=== PATIENT | female | born 1945 | race Caucasian/White ===

== ENCOUNTER 2018-02-21 09:50 | Outpatient (CLI) | payer MEDICARE, OTHER ==
[2018-02-21 10:49] LABS: ALBUMIN 3.8 g/dL (3.2-5.5); CALCIUM 9.2 mg/dL (8.5-10.3); PHOSPHORUS 3.8 mg/dL (2.5-4.6)
== END 2018-02-21 09:51 | disposition home or self-care (01) ==
LOC: LAB 09:50
PROVIDERS: ATTEND Internal Medicine Cardiovascular Disease
DX: I49.3 Ventricular premature depolarization (principal); R53.83 Other fatigue
CPT/HCPCS: 36415; 80069

== ENCOUNTER 2018-03-28 13:42 | Outpatient (CLI) | payer MEDICARE, OTHER ==
--- NOTE | 2018-04-07 12:40 | Mammography Report ---
Reason: BILAT SCREEN w SUDHA Procedure Date: 03/28/2018 Accession Number: [id number] / [id number] Procedure: ALLI - Screening Mammo w/Sudha CPT Code: FULL RESULT: EXAM: Screening Mammo w/Sudha DATE: 03/28/2018 2:34 PM CLINICAL HISTORY: Routine screening TECHNIQUE: Bilateral CC and MLO views were obtained. COMPARISON: Not available. FINDINGS: The breast tissue is heterogeneously dense. No suspicious masses, clustered microcalcifications, skin thickening, or regions of architectural distortion are identified. IMPRESSION: Negative examination. RECOMMENDATION: Routine annual screening unless otherwise clinically indicated. BIRADS CATEGORY 1: Negative Comment: If prior examinations become available for comparison, an addended report will be issued. STANDARD QUALIFYING STATEMENTS: 1. This examination was not reviewed with the aid of Computer-Aided Detection (CAD). 2. A negative or benign imaging report should not delay biopsy if clinically suspicious findings are present. Consider surgical consultation if warrented. More than 5% of cancers are not identified by imaging. 3. Dense breasts may obscure an underlying neoplasm. 4. This examination was reviewed with the aid of 3D breast imaging (tomosynthesis).
== END 2018-03-28 13:43 | disposition home or self-care (01) ==
LOC: DI 13:42
PROVIDERS: ATTEND Family Medicine
DX: Z12.31 Encounter for screening mammogram for malignant neoplasm of breast (principal)
CPT/HCPCS: 77063; 77067

== ENCOUNTER 2018-03-28 13:43 | Outpatient (CLI) | payer MEDICARE, OTHER ==
--- NOTE | 2018-03-30 11:23 | DEXA Report ---
Reason: SCREENING FOR OSTEOPOROSIS Procedure Date: 03/28/2018 Accession Number: [id number] / [id number] Procedure: DEX - Dexa Spine and/or Hip CPT Code: FULL RESULT: EXAM: Dexa Spine and/or Hip DATE: 03/28/2018 2:55 PM CLINICAL HISTORY: SCREENING FOR OSTEOPOROSIS TECHNIQUE: Dual energy x-ray absorptiometry (DXA) was performed on a [employer] System. Regions measured are the AP Spine, femoral neck, and if needed forearm. COMPARISON: None. In accordance with the International Society for Clinical Densitometry (ISCD) guidelines, data from previous exams may be reanalyzed using current recommendations and techniques. This is done to allow a more accurate basis for comparison with the current study. FINDINGS: The data for the lumbar spine is as follows: BMD (g/cm/cm) T-SCORE Z-SCORE REGION L1 1.059 -0.6 0.8 L2 1.171 -0.2 1.2 L3 1.291 0.8 2.2 L4 1.198 0.0 1.4 TOTAL 1.186 0.1 1.5 NOTE: All evaluable vertebrae are used for classification The data for the hip is as follows: BMD (g/cm/cm) T-SCORE Z-SCORE REGION Neck 0.987 -0.4 1.2 TOTAL 0.834 -1.4 -0.1 NOTE: The femoral neck or total proximal femur, whichever is lowest, is used for classification. IMPRESSION: THE WHO CLASSIFICATION BASED ON THE INTERNATIONAL REFERENCE STANDARD IS OSTEOPENIA. THE FRACTURE RISK IS INCREASED. RECOMMENDATION: Patients with diagnosis of osteoporosis or osteopenia should have regular bone mineral density assessment. For those eligible for Medicare, routine testing is allowed once every 2 years. Testing frequency can be increased for patients who have rapidly progressing disease or for those who are receiving medical therapy to restore bone mass. COMMENT: World Health Organization (WHO) definitions for osteoporosis and osteopenia: NORMAL BMD: T-score at -1.0 or higher, fracture risk is low OSTEOPENIA BMD: T-score between -1.0 and -2.5, fracture risk is increased. OSTEOPOROSIS BMD: T-score at -2.5 or lower, fracture risk is high. National Osteoporosis Foundation recommends: 1. Obtain adequate dietary calcium (at least 1200 mg per day) and vitamin D (400-800 international units per day). 2. Participate, as appropriate, in regular weightbearing and muscle-strengthening exercise. 3. Avoid tobacco use and reduce alcohol and caffeine intake. 4. For more detailed information see the website at www.NOF.org.
== END 2018-03-28 13:44 | disposition home or self-care (01) ==
LOC: DI 13:43
PROVIDERS: ATTEND Family Medicine
DX: Z13.820 Encounter for screening for osteoporosis (principal); M85.88 Other specified disorders of bone density and structure, other site; Z78.0 Asymptomatic menopausal state
CPT/HCPCS: 77080

== ENCOUNTER 2019-06-27 10:52 | Outpatient (CLI) | payer MEDICARE, OTHER ==
--- NOTE | 2019-06-28 15:54 | Mammography Report ---
Reason: ROUTINE MAMMO Procedure Date: 06/27/2019 Accession Number: [id number] / [id number] Procedure: ALLI - Screening Mammo w/Suraj CPT Code: Final Report FULL RESULT: EXAM: Screening Mammo w/Suraj DATE: 06/27/2019 11:20 AM CLINICAL HISTORY: The patient is a 74 year-old asymptomatic female. Second degree family history of breast cancer. TECHNIQUE: (B) - Bilateral CC and MLO views were obtained. COMPARISON: 03/28/2018 PARENCHYMAL PATTERN: (D) - The breasts demonstrate heterogeneously dense fibroglandular parenchyma bilaterally. FINDINGS: RIGHT BREAST: There may be increasing asymmetry in the upper outer posterior position; reference tomographic slices 31 (CC) and 20 (MLO). This may be due to variation in positioning. Recommend targeted diagnostic evaluation. The remainder of the parenchymal pattern is stable. LEFT BREAST: The pattern of nodular asymmetry is stable. Few benign calcifications are again noted. There are no suspicious masses, calcifications, or areas of distortion. IMPRESSION: RIGHT BREAST: Incomplete examination. BI-RADS category 0. LEFT BREAST: Benign examination. BI-RADS category 2. RECOMMENDATION: Targeted diagnostic evaluation of the left breast to include 3-D mammography and ultrasound, if indicated. BI-RADS CATEGORY: (0) - Incomplete Examination - need additional evaluation. STANDARD QUALIFYING STATEMENTS: A negative or benign imaging report should not preclude biopsy if clinically suspicious findings are present. Dense breasts may obscure an underlying neoplasm. This examination was reviewed with the aid of 3D breast imaging (tomosynthesis).
== END 2019-06-27 10:53 | disposition home or self-care (01) ==
LOC: DI 10:52
PROVIDERS: ATTEND Family Medicine
DX: Z12.31 Encounter for screening mammogram for malignant neoplasm of breast (principal); R92.8 Other abnormal and inconclusive findings on diagnostic imaging of breast; Z80.3 Family history of malignant neoplasm of breast
CPT/HCPCS: 77063; 77067

== ENCOUNTER 2019-08-07 08:57 | Outpatient (CLI) | payer MEDICARE, OTHER ==
--- NOTE | 2019-08-07 10:26 | Mammography Report ---
Reason: ABN MAMMO-RT SPECIAL VIEWS Procedure Date: 08/07/2019 Accession Number: [id number] / [id number] Procedure: ALLI - Diag Special Views Dig RT CPT Code: Final Report FULL RESULT: EXAM: Diag Special Views Dig RT DATE: 08/07/2019 9:50 AM CLINICAL HISTORY: Diagnostic examination. Patient is recalled from screening for increasing asymmetry in the right breast. TECHNIQUE: (R) - Right CC, spot CC, ML and spot MLO images are obtained. Focused right breast ultrasound is performed. COMPARISON: 06/27/2019 through 03/28/2018. PARENCHYMAL PATTERN: (D) - The breast(s) demonstrate(s) heterogeneously dense fibroglandular parenchyma. FINDINGS: The increasing right axillary tail asymmetry approximately 11 cm from the nipple at the 11:00 position persists with clear architectural distortion as seen on CC image 28 and MLO image 23. Focused right breast ultrasound of the axillary tail 10 cm from the nipple demonstrates a taller than wide 0.6 cm shadowing mass lesion with ill-defined borders, suspicious. IMPRESSION: Highly suggestive for malignancy. BI-RADS category 5. RECOMMENDATION: (BIOPSY) - ultrasound-guided right breast biopsy. BI-RADS CATEGORY: (5) - Highly suggestive for malignancy. STANDARD QUALIFYING STATEMENTS: 1. This examination was not reviewed with the aid of Computer-Aided Detection (CAD). 2. A negative or benign imaging report should not preclude biopsy if clinically suspicious findings are present. 3. Dense breasts may obscure an underlying neoplasm. 4. This examination was reviewed with the aid of 3D breast imaging (tomosynthesis).
== END 2019-08-07 08:58 | disposition home or self-care (01) ==
LOC: DI 08:57
PROVIDERS: ATTEND Family Medicine
DX: N63.31 Unspecified lump in axillary tail of the right breast (principal)
CPT/HCPCS: 76642

== ENCOUNTER 2019-08-20 14:55 | Outpatient (CLI) | payer MEDICARE, OTHER ==
[~2019-08-20 14:55] MED LIST: BUFFERED LIDOCAINE 10 ML SYRINGE ONE
[2019-08-20] MEDS ORDERED: BUFFERED LIDOCAINE 10 ML SYRINGE IU ONE (16:38)
--- NOTE | 2019-08-20 16:40 | Ultrasound Report ---
Reason: ABNORMAL MAMMO - RT BREAST NODULE Procedure Date: 08/20/2019 Accession Number: [id number] / [id number] Procedure: US - Biopsy Breast Core CPT Code: Final Report FULL RESULT: PROCEDURE: Ultrasound-guided needle biopsy left breast mass. CLINICAL DATA: Targeted mass measuring 0.7 cm with irregular margins in the 10 o'clock axis of the left breast. Informed consent was obtained. Using standard aseptic technique, 1% buffered lidocaine was injected into the left breast for local anesthesia. A small navid was made in the skin with a #11 blade. A 12-gauge Wevebob vacuum-assisted device was used to obtain 3 specimens. A specialized biopsy marker clip was placed into the biopsy cavity under ultrasound guidance. The patient was taken to separate mammography machine and a two-view digital mammography was performed to verify the clip placement and any complications. The mammography showed concordant clip position and expected postbiopsy changes. The wound was dressed and ice applied. The patient was observed for approximately 15 minutes, then was discharged from diagnostic imaging Department in good condition following instructions on wound care and obtaining biopsy results. The patient is scheduled to receive the biopsy results from the referring physician. The tissue was sent for histologic analysis. IMPRESSION: Ultrasound-guided biopsy of the left breast. AN ADDENDUM WILL BE MADE TO THIS REPORT WHEN PATHOLOGY IS REVIEWED TO ESTABLISH CONCORDANCE.
== END 2019-08-20 14:56 | disposition home or self-care (01) ==
LOC: DI 14:55
PROVIDERS: ATTEND Family Medicine
DX: C50.211 Malignant neoplasm of upper-inner quadrant of right female breast (principal); Z17.0 Estrogen receptor positive status [ER+]
CPT/HCPCS: 19083; 88305; 88341; 88342; 88360

== ENCOUNTER 2019-09-20 16:08 | Outpatient (CLI) | payer MEDICARE, OTHER ==
[2019-09-20 16:24] LABS: CALCIUM 8.7 mg/dL (8.5-10.3); CREATININE 0.8 mg/dL (0.4-1.0)
== END 2019-09-20 16:09 | disposition home or self-care (01) ==
LOC: LAB 16:08
PROVIDERS: ATTEND Surgery
DX: C50.919 Malignant neoplasm of unspecified site of unspecified female breast (principal)
CPT/HCPCS: 36415; 80048

== ENCOUNTER 2019-09-25 12:42 | Outpatient (CLI) | payer MEDICARE, OTHER ==
[2019-09-25] MEDS ORDERED: GADOBUTROL 7.5 MMOL/7.5 ML VIAL ONE (12:53)
[2019-09-25] MEDS ORDERED: GADOBUTROL 7.5 MMOL/7.5 ML VIAL IVP ONE (13:30)
--- NOTE | 2019-09-26 13:40 | MRI Report ---
Reason: RT INVASIVE LOBULAR CA Procedure Date: 09/25/2019 Accession Number: [id number] / [id number] Procedure: MRI - Breast W/WO Cont CPT Code: 51631 Final Report FULL RESULT: EXAM: BILATERAL BREAST MRI WITHOUT AND WITH CONTRAST EXAM DATE: 09/25/2019 02:09 PM CLINICAL HISTORY: 74-year-old woman with recently diagnosed right breast invasive lobular carcinoma following ultrasound-guided core biopsy for indeterminate mass at the 10 o'clock position. MRI is requested to evaluate for extent of disease. TECHNIQUE: Body Coil: (Limited chest MRI)- Coronal LFOV STIR Dedicated breast coil: Axial - precontrast STIR Axial - postcontrast sequential 1 minute three-dimensional FLASH (x 5) Axial - high-resolution volumetric water stimulation acquisition (VIEWS) CONTRAST USED: 7ML GADAVIST. POSTPROCESSING: Subtraction dynamic/curve analysis and multiplanar reformations with CAD stream FINDINGS: Right breast: There is minimal background parenchymal enhancement. Heterogeneously dense parenchyma is noted. At the 10 o'clock position at posterior depth, biopsy-proven malignancy is seen as a spiculated mass demonstrating rim enhancement measuring up to 1.8 cm in greatest dimension. Biopsy clip is noted at the lateral/inferior aspect of the mass. In the remaining right breast, no focal suspicious enhancing other malady is seen. Evaluation of the axilla reveals normal-appearing lymph nodes. Left breast: There is minimal background parenchymal enhancement. Heterogeneously dense ring, is noted. No focal suspicious enhancing other malady is seen. Evaluation of the axilla reveals normal-appearing lymph nodes. IMPRESSION: 1. Right breast: Biopsy-proven malignancy at the 10 o'clock position seen as a spiculated mass with biopsy clip at the lateral/inferior aspect measuring up to 1.8 cm in greatest dimension. No evidence of multifocal or multicentric disease. Unremarkable right axilla. (BI-RADS Category 6). 2. Left breast: No focal suspicious enhancing other malady seen. Unremarkable left axilla. (BI-RADS Category 1). COMMENT: The literature indicates that a negative dynamic breast MRI has a high sensitivity and specificity for the detection of invasive carcinoma (to a threshold of 5 mm). MRI is not reliably sensitive for detecting ductal carcinoma in situ or large invasive neoplasms with only minimal enhancement (i.e. mucinous carcinoma). Normal-appearing lymph nodes on MRI may contain microscopic tumor. Appropriate clinical mammographic and sonographic followup should be performed if recommended. Negative MRI should not dissuade further evaluation of any suspicious mammographic calcifications and/or worrisome palpable masses.
== END 2019-09-25 12:43 | disposition home or self-care (01) ==
LOC: DI 12:42
PROVIDERS: ATTEND Surgery
DX: C50.411 Malignant neoplasm of upper-outer quadrant of right female breast (principal)
CPT/HCPCS: 77049; A9585

== ENCOUNTER 2019-12-14 14:29 | Outpatient (CLI) | payer MEDICARE, OTHER | END 2019-12-14 14:30 | disposition home or self-care (01) | LOC: LAB 14:29 | PROVIDERS: ATTEND Surgery | DX: Z01.812 Encounter for preprocedural laboratory examination (principal); C50.919 Malignant neoplasm of unspecified site of unspecified female breast; Z20.828 Contact with and (suspected) exposure to other viral communicable diseases | CPT/HCPCS: 81599 ==

== ENCOUNTER 2019-12-17 10:03 | Day surgery (SDC) | payer MEDICARE, OTHER ==
[2019-12-17] MEDS ORDERED: LACTATED RINGERS 1,000 ML IV ONE (10:28)
[2019-12-17] MEDS ORDERED: CEFAZOLIN SODIUM IN 0.9 % NACL 2 GM/100 ML BAG IV ONE (10:47)
--- NOTE | 2019-12-17 12:46 | ANESTHESIA ---
Pre-Anesthesia VS, & Labs - Diagnosis right breast cancer - Procedure breast lumpectomy with axillary sentinal dose removal. Vital Signs: Temp Pulse Resp BP Pulse Ox 36.7 C 59 L 16 179/99 H 100 12/17/19 10:13 12/17/19 10:13 12/17/19 10:13 12/17/19 10:13 12/17/19 10:13 Height 5 ft 8 in Weight (kg) 71 kg Body Mass Index 23.4 - NPO >8 hours - Is Patient ?: No Home Medications and Allergies Home Medications: Ambulatory Orders Anastrozole 1 mg PO DAILY 12/11/19 Fluticasone [Flonase] 1 sprays AMRITA DAILY PRN 12/11/19 predniSONE [Prednisone] 10 mg PO ONCE 12/11/19 Calcium Citrate 500 mg PO DAILY 10/05/19 Gabapentin 200 mg PO DAILY 10/05/19 Losartan [Cozaar] 50 mg PO DAILY 10/05/19 Metoprolol Succinate 50 mg PO DAILY 10/05/19 Omeprazole 20 mg PO DAILY PRN 10/05/19 Anastrozole 1 mg PO DAILY 12/11/19 Fluticasone [Flonase] 1 sprays AMRITA DAILY PRN 12/11/19 predniSONE [Prednisone] 10 mg PO ONCE 12/11/19 Allergies/Adverse Reactions: Allergies Allergy/AdvReac Type Severity Reaction Status Date / Time No Known Drug Allergies Allergy Verified 12/11/19 08:33 Anes History & Medical History - Anesthetic History Anesthesia Complications: reports: No previous complications, Post-Operative Nausea/Vomiting Family history of Anesthesia Complications: Denies Family history of Malignant Hyperthermia: Denies - Medical History Cardiovascular: reports: Hypertension Pulmonary: reports: Other (sarcoidosis) Gastrointestinal: reports: GERD (undercontrol) Urinary: reports: None Neuro: reports: None, Other (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 muscle spasticity and foot drop in the left leg since after that craniotomy) Musculoskeletal: reports: Osteoarthritis Endocrine/Autoimmune: reports: None Blood Disorders: reports: None Skin: reports: None Smoking Status: Former smoker Psychosocial: reports: Alcohol (a drink aday) - Surgical History General: Appendectomy Eyes Ears Nose Throat (EENT): Cataracts Gynecologic: Tubal ligation Neurologic: Craniotomy Orthopedic: Knee replacement, Spine surgery Exam General: Alert, Oriented x3, Cooperative, No acute distress Dental: WNL Mouth Openin Fingerbreadth Neck Mobility: Normal Mallampati classification: II Thyromental Distance: 4-6 cm Respiratory: Lungs clear, Normal breath sounds, No respiratory distress, No accessory muscle use Cardiovascular: Regular rate, Normal S1, Normal S2, No murmurs Abdomen: Normal bowel sounds, Soft, No tenderness, No hepatospenomegaly, No masses Extremities: No clubbing, No cyanosis, No edema, Normal pulses, No tenderness/swelling Neurological: Normal gait, Normal speech, Strength at 5/5 X4 ext, Normal tone, Sensation intact, Cranial nerves 3-12 NL, Reflexes 2+ Mental/Cognitive Status: Alert/Oriented X3, Normal for patient Cognitive Status: Within normal limits Plan Anesthesia Type: General, Other Block (pecs 1 and 2 blocks.) Regional Block: Per Surgeon's request for Post Op pain control Consent for Procedure(s) Verified and Reviewed: Yes Code Status: Attempt Resuscitation ASA classification: 3-Severe systemic disease Is this case an emergency?: No
[2019-12-17] MEDS ORDERED: ROPIVACAINE 0.5% PF 20 ML AMPULE ONE (12:47)
[2019-12-17] MEDS ORDERED: LIDOCAINE 1%-EPI 1:100000 20 ML MDV ONE (13:10)
[2019-12-17] MEDS ORDERED: BUPIVACAINE 0.5% PF 30 ML VIAL ONE (13:10)
[2019-12-17] MEDS ORDERED: KETOROLAC 15 MG/ML VIAL IVP ONE (13:26)
[2019-12-17] MEDS ORDERED: GLYCOPYRROLATE 1 MG/5 ML VIAL IVP ONE (13:26)
[2019-12-17] MEDS ORDERED: ACETAMINOPHEN 1,000 MG/100 ML 100 ML IV ONE (13:26)
[2019-12-17] MEDS ORDERED: dexAMETHasone 4 MG TABLET PO ONE (13:26)
[2019-12-17] MEDS ORDERED: ePHEDrine 50 MG/ML VIAL IVP ONE (13:26)
[2019-12-17] MEDS ORDERED: LIDOCAINE-MPF 2% 5 ML VIAL IM ONE (13:26)
[2019-12-17] MEDS ORDERED: PROPOFOL 200 MG/20 ML VIAL IVP ONE (13:26)
[2019-12-17] MEDS ORDERED: ONDANSETRON 4 MG/2 ML VIAL IVP ONE (13:26)
[2019-12-17] MEDS ORDERED: fentaNYL 100 MCG/2 ML VIAL IVP ONE (13:26)
[2019-12-17] MEDS ORDERED: LIDOCAINE 1%-EPI 1:100000 20 ML MDV SUBQ ONE ×2 (13:40)
[2019-12-17] MEDS ORDERED: BUPIVACAINE 0.5% PF 30 ML VIAL SUBQ ONE ×2 (13:41)
--- NOTE | 2019-12-17 14:36 | OPERATIVE REPORT ---
Operative Report - General Procedure Date: 12/17/19 Planned Procedure: Right breast lumpectomy and sentinel node dissection after needle localization and mapping Pre-Op Diagnosis: Biopsy-proven right breast cancer Procedure Performed: Right breast lumpectomy and sentinel node dissection after needle localization and mapping Post Op Diagnosis: Biopsy-proven right breast cancer - Procedure Note Primary Surgeon: Angel Anesthesia Provider: SARAH Che Anesthesia Technique: General LMA, Local Pathology: 1. [place] node #1 - 10 second count 4140 2. [place] node #2 - 10 second count 3503 3. [place] node #3 - 10 second count 1300 Background in the axilla 14 Background in room 0 4. Left breast specimen Estimated Blood Loss (mL): 15 Findings: 3 sentinel node Complications: None apparent - Other Other Information/Narrative: After obtaining informed consent, the patient is brought to the operating room and placed in the supine position on the operating table. Following successful induction of general endotracheal anesthesia, Appropriate padding of all bony prominences, and placement appropriate monitors, the right breast and axilla were prepped and draped in standard surgical fashion.Timeout was held per scope protocol. All elements of the surgical safety checklist were observed before, during, and after the procedure. We began the procedure by using the neoprobe to map and identify the areas of greatest uptake, thereby locating the sentinel nodes. A natural axillary fold was chosen for the incision. This area was infiltrated with local anesthetic and incision was created here. This was carried down through the skin and subcutaneous tissue to enter the axillary fat pad and swapna packet. 3 separate sentinel nodes were identified, the first was at the level 2 region and the second 2 were at the level 2 and 3 junction. Each was identified separately, the afferent and efferent lymphatics were ligated with hemoclips and the nodes were liberated 1 at a time. 10-second counts were obtained and recorded. The wound was then checked for hemostasis and irrigated with warm water. It was closed in 2 layers with Vicryl and Monocryl suture. An incision was created in the lateral portion of the right breast to include the wire. This was carried down through the skin and subcutaneous tissue. The wire and mass were then liberated from the muscle posteriorly and circumferentially using sharp dissection only. The mass and wire were delivered into the field and marked for orientation. It was placed in a x-ray safe device and sent for specimen imagi ng. The wound was then checked for hemostasis. It was irrigated with warm water while we waited for information regarding the specimen x-ray. The radiologist called into the room reporting that the specimen contained all the important elements. The wound was then closed in 2 layers with Vicryl and Monocryl suture. Dermabond was applied to the skin. The patient was wrapped in a breast binder. All sponge, needle, and instrument counts were correct at the conclusion of the case.She was allowed awaken from anesthesia without difficulty and taken to the postanesthesia care unit in good condition.
--- NOTE | 2019-12-17 14:37 | Nuclear Medicine Report ---
PROCEDURE: Lymph Node Scintigraphy INDICATIONS: RT BREAST CA RADIOPHARMACEUTICAL: 0.5-1.0 mCi Millipore filtered Tc-99m sulfur colloid. TECHNIQUE: The area around the nipple was prepped and draped in a sterile fashion. Tc-99m sulfur colloid was in jected intra-dermally in the outer edge of the areola in the right breast. Images were obtained subs equently. A body contour outline was obtained. FINDINGS: There is/are 2 lymph node(s) in the ipsilateral axilla, which is marked on the skin and the images fo r referring physician. IMPRESSION: Administration of radiotracer into the right breast periareolar region for intra-operati ve sentinel lymph node localization. Reviewed by: Micky Boss MD on 12/17/2019 2:36 PM PDT Approved by: Micky Boss MD on 12/17/2019 2:36 PM PDT Station ID: [id number]
[2019-12-17] MEDS ORDERED: ACETAMINOPHEN 325 MG TABLET PO PRN (14:52)
[2019-12-17] MEDS ORDERED: IBUPROFEN 600 MG TABLET PO PRN (14:52)
[2019-12-17] MEDS ORDERED: oxyCODONE 5 MG TABLET PO PRN (14:52)
[2019-12-17] MEDS ORDERED: ONDANSETRON 4 MG/2 ML VIAL IVP PRN (14:52)
[2019-12-17 16:08] VITALS: BP 145/77
[2019-12-17] MEDS ORDERED: BUFFERED LIDOCAINE 10 ML SYRINGE IU ONE (17:24)
--- NOTE | 2019-12-20 11:00 | Mammography Report ---
SPECIMEN RIGHT BREAST: 12/17/2019 CLINICAL: Post right lumpectomy. No prior exams were available for correlation. A surgical specimen was imaged for the previous biopsy site located in the right breast at 9 o'clock posterior depth. IMPRESSION: SPECIMEN The imaged specimen includes a biopsy clip and the distal portion of the localization wire. Micky barros/:12/19/2019 16:02:10 BI-RADS CATEGORY: () - Biopsy follow-up [id number] Immediate follow-up LATERALITY: (B)
--- NOTE | 2019-12-20 11:00 | Mammography Report ---
DIGITAL MAMMOGRAPHY GUIDED WIRE LOCALIZATION RIGHT BREAST: 12/17/2019 CLINICAL: Pre op wire localization Right breast. Correlation is made to exams dated: 08/07/2019 mammogram, 08/20/2019 mammogram, and 06/27/2019 mammogram - [facility]. A wire localization using digital mammography guidance was performed for the marker clip located in t he right breast at 9 o'clock posterior depth. The skin was prepped in the usual manner. Local anest hetic was administered to the access site. A wire was inserted into the targeted area under digital mammography guidance. IMPRESSION: WIRE LOCALIZATION Wire localization for the marker clip in the right breast at 9 o'clock posterior depth was successful . A specimen radiograph is recommended. Micky barros/:12/17/2019 16:26:43 BI-RADS CATEGORY: () - Biopsy follow-up [id number] Immediate follow-up LATERALITY: (B)
== END 2019-12-17 10:04 | disposition home or self-care (01) ==
LOC: SDS 10:03
PROVIDERS: ATTEND Surgery
PROC: 0HBT0ZZ Excision of Right Breast, Open Approach (ICD-10-PCS; principal; 2019-12-17 13:30)
DX: C50.411 Malignant neoplasm of upper-outer quadrant of right female breast (principal); Z17.0 Estrogen receptor positive status [ER+]; I10 Essential (primary) hypertension; Z87.891 Personal history of nicotine dependence
CPT/HCPCS: 19281; 19301; 38525; 76098; 78195; A9541; J0131; J0690; J7120; J8540

== ENCOUNTER 2019-12-28 14:12 | Outpatient (CLI) | payer MEDICARE, OTHER | END 2019-12-28 14:13 | disposition home or self-care (01) | LOC: LAB 14:12 | PROVIDERS: ATTEND Surgery | DX: Z01.818 Encounter for other preprocedural examination (principal); C50.919 Malignant neoplasm of unspecified site of unspecified female breast; Z20.828 Contact with and (suspected) exposure to other viral communicable diseases ==

== ENCOUNTER 2019-12-31 09:04 | Day surgery (SDC) | payer MEDICARE, OTHER ==
[2019-12-31] MEDS ORDERED: fentaNYL 100 MCG/2 ML VIAL IVP ONE (09:05)
[2019-12-31] MEDS ORDERED: LIDOCAINE-MPF 2% 5 ML VIAL IM ONE (09:05)
[2019-12-31] MEDS ORDERED: MIDAZOLAM 2 MG/2 ML VIAL IVP ONE (09:05)
[2019-12-31] MEDS ORDERED: PROPOFOL 200 MG/20 ML VIAL IVP ONE (09:05)
[2019-12-31] MEDS ORDERED: CEFAZOLIN SODIUM IN 0.9 % NACL 2 GM/100 ML BAG IV ONE (09:11)
[2019-12-31] MEDS ORDERED: BUPIVACAINE 0.5% PF 30 ML VIAL ONE (09:33)
[2019-12-31] MEDS ORDERED: LIDOCAINE 1%-EPI 1:100000 20 ML MDV ONE (09:33)
[2019-12-31] MEDS ORDERED: LACTATED RINGERS 1,000 ML IV ONE (09:41)
--- NOTE | 2019-12-31 09:51 | ANESTHESIA ---
Pre-Anesthesia VS, & Labs - Diagnosis R breast CA - Procedure R breast re-excision of margins Vital Signs: Temp Pulse Resp BP Pulse Ox 37.1 C 65 18 180/97 H 98 12/31/19 09:05 12/31/19 09:05 12/31/19 09:05 12/31/19 09:05 12/31/19 09:05 Height 5 ft 8 in Weight (kg) 71.1 kg Body Mass Index 23.4 - NPO >8 hours - Is Patient ?: No - Lab Results Lab results reviewed: Yes Home Medications and Allergies Calcium Citrate 500 mg PO DAILY 10/05/19 Gabapentin 200 mg PO DAILY 10/05/19 Losartan [Cozaar] 50 mg PO DAILY 10/05/19 Metoprolol Succinate 50 mg PO DAILY 10/05/19 Omeprazole 20 mg PO DAILY PRN 10/05/19 Anastrozole 1 mg PO DAILY 12/11/19 Fluticasone [Flonase] 1 sprays AMRITA DAILY PRN 12/11/19 predniSONE [Prednisone] 10 mg PO ONCE 12/11/19 Allergies/Adverse Reactions: Allergies Allergy/AdvReac Type Severity Reaction Status Date / Time No Known Drug Allergies Allergy Verified 12/11/19 08:33 Anes History & Medical History - Anesthetic History Anesthesia Complications: reports: No previous complications Family history of Anesthesia Complications: Denies Family history of Malignant Hyperthermia: Denies - Medical History Cardiovascular: reports: Hypertension Pulmonary: reports: Other Neuro: reports: None, Other (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 muscle spasticity and foot drop in the left leg since after that craniotomy) Blood Disorders: reports: None Smoking Status: Former smoker - Surgical History General: Appendectomy, Colonoscopy Eyes Ears Nose Throat (EENT): Cataracts Gynecologic: Tubal ligation Neurologic: Craniotomy Orthopedic: Knee replacement, Spine surgery Exam General: Alert, Oriented x3, Cooperative Dental: WNL Mouth Openin Fingerbreadth Neck Mobility: Normal Mallampati classification: II Thyromental Distance: greater than 6 cm Respiratory: Lungs clear, Normal breath sounds, No respiratory distress Cardiovascular: Regular rate Neurological: Normal speech Mental/Cognitive Status: Alert/Oriented X3, Normal for patient Cognitive Status: Within normal limits Plan Anesthesia Type: General Consent for Procedure(s) Verified and Reviewed: Yes Code Status: Attempt Resuscitation ASA classification: 3-Severe systemic disease Is this case an emergency?: No
[2019-12-31] MEDS ORDERED: BUPIVACAINE 0.5% PF 30 ML VIAL INFIL ONE (10:21)
[2019-12-31] MEDS ORDERED: LIDOCAINE 1%-EPI 1:100000 20 ML MDV SUBQ ONE (10:22)
[2019-12-31] MEDS ORDERED: ONDANSETRON 4 MG/2 ML VIAL IVP PRN (10:49)
[2019-12-31] MEDS ORDERED: IBUPROFEN 600 MG TABLET PO PRN (10:49)
[2019-12-31] MEDS ORDERED: oxyCODONE 5 MG TABLET PO PRN (10:49)
[2019-12-31] MEDS ORDERED: ACETAMINOPHEN 325 MG TABLET PO PRN (10:49)
--- NOTE | 2019-12-31 10:49 | OPERATIVE REPORT ---
Operative Report - General Procedure Date: 12/31/19 Planned Procedure: Excision of margins right breast Pre-Op Diagnosis: Invasive breast cancer with positive medial margin Procedure Performed: Reexcision of medial margin and evacuation of right breast hematoma Post Op Diagnosis: Same - Procedure Note Primary Surgeon: Angel Anesthesia Provider: SARAH Roman Anesthesia Technique: Local, MAC Pathology: Medial margin marked for orientation and submitted to pathology Estimated Blood Loss (mL): 50 Findings: 50 mls of old blood within the lumpectomy cavity Complications: None apparent - Other Other Information/Narrative: After obtaining informed consent, the patient was brought to the operating room and placed in the supine position on the operating table. Following successful induction of monitored anesthesia care with sedation, the right breast was prepped and draped in the standard surgical fashion. A timeout was held per scope protocol. All elements of the surgical safety checklist were followed before, during, and after the procedure. Following infiltration with local anesthetic to create a field block, the existing incision was reopened into the lumpectomy cavity. Approximately 50 mL of clotted blood was evacuated from the lumpectomy cavity and it was irrigated with warm water. A tiny bit of hydrogen peroxide, about 5 mL was added to the irrigation fluid to help lyse the red blood cells. Once the cavity was completely clean, the entire medial anterior and posterior margin was reexcised. This was done sharply to preserve the margin. The specimen was then marked for orientation and passed from the table. The wound was checked for hemostasis. It was irrigated once again with warm water and aspirated free of all fluid and particulate matter. The cavity was marked with hemoclips to facilitate radiotherapy. The skin was then closed in 2 layers with Vicryl and Monocryl suture and Dermabond was applied. All sponge, needle, and instrument counts w ere correct at the conclusion of the case. The patient was allowed to wake from anesthesia without difficulty and taken to the postanesthesia care unit in good condition.
[2019-12-31 11:35] VITALS: BP 138/76
== END 2019-12-31 09:05 | disposition home or self-care (01) ==
LOC: SDS 09:04
PROVIDERS: ATTEND Surgery
PROC: 0HBT0ZZ Excision of Right Breast, Open Approach (ICD-10-PCS; principal; 2019-12-31 10:00)
DX: D05.01 Lobular carcinoma in situ of right breast (principal); N61.0 Mastitis without abscess; L76.32 Postprocedural hematoma of skin and subcutaneous tissue following other procedure; Y83.8 Other surgical procedures as the cause of abnormal reaction of the patient, or of later complication, without mention of misadventure at the time of the procedure; Z87.891 Personal history of nicotine dependence
CPT/HCPCS: 19301; J0690; J7120

== ENCOUNTER 2020-03-20 10:48 | Outpatient (CLI) | payer MEDICARE, OTHER ==
--- NOTE | 2020-03-20 11:21 | DEXA Report ---
PROCEDURE: Dexa Spine and/or Hip INDICATIONS: POSTMENOPAUSAL TECHNIQUE: Dual energy x-ray absorptiometry (DXA) was performed on a [employer] System. Regions measur ed are the AP Spine, femoral neck, and if needed forearm. COMPARISON: None. FINDINGS: Lumbar Spine: Bone Mineral Density 1.165 g/cm/cm,T score -0.1, normal Left Hip: Bone Mineral Density 0.846 g/cm/cm,T score -1.3, osteopenia Left Femoral Neck: Bone Mineral Density 2.965 g/cm/cm, T score -0.5, normal (T score greater or equal to -1.0: NORMAL) (T score from -1.1 to -2.4: OSTEOPENIA) (T score less than or equal to -2.5 to: OSTEOPOROSIS) Impression: Osteopenia Patients with diagnosis of osteoporosis or osteopenia should have regular bone mineral density assess ment. For those eligible for Medicare, routine testing is allowed once every 2 years. Testing frequ ency can be increased for patients who have rapidly progressing disease or for those who are receivin g medical therapy to restore bone mass. Reviewed by: Crystal Stevens MD, PhD on 03/20/2020 11:20 AM PDT Approved by: Crystal Stevens MD, PhD on 03/20/2020 11:20 AM PDT Station ID: [id number]
== END 2020-03-20 10:49 | disposition home or self-care (01) ==
LOC: DI 10:48
PROVIDERS: ATTEND Internal Medicine Hematology & Oncology
DX: M85.88 Other specified disorders of bone density and structure, other site (principal)
CPT/HCPCS: 77080

== ENCOUNTER 2020-08-01 09:30 | Outpatient (CLI) | payer MEDICARE, OTHER ==
--- NOTE | 2020-08-04 12:55 | Mammography Report ---
BILATERAL DIGITAL DIAGNOSTIC MAMMOGRAM 3D/2D: 08/01/2020 CLINICAL: Post right lumpectomy. Patient returns for a 6 month follow up of the right breast, due for bilateral exam. Personal History of Right Breast Cancer. Comparison is made to exams dated: 08/20/2019 mammogram, 08/07/2019 mammogram, 06/27/2019 mammogram, 12/16 specimen, and 09/25/2019 breast MRI - [facility]. The tissue of both breasts i s heterogeneously dense. This may lower the sensitivity of mammography. There is a benign post-surgical scar in the right breast at 10 o'clock posterior depth. No other significant masses, calcifications, or other findings are seen in either breast. IMPRESSION: BENIGN There is no mammographic evidence of malignancy. Expected appearance of the right breast lumpectomy site. New baseline for the right breast. A follow-up mammogram is recommended per post-lumpectomy protocol. Exam findings were conveyed to the patient. This exam was interpreted at Station ID: [id number]. NOTE: For mammograms, a report in lay terms will be sent to the patient. Approximately 15% of breast malignancies will not be visualized mammographically. In the management of a palpable breast mass, a negative mammogram must not discourage biopsy of a clinically suspicious lesion. Electronically Signed By: Bijna Gottlieb M.D. slc/:08/01/2020 11:57:59 ACR BI-RADS Category 2: Benign Finding(s) 3342F PARENCHYMAL PATTERN: (D) - The breast(s) demonstrate(s) heterogeneously dense fibroglandular theresa crawford. BI-RADS CATEGORY: (2) - 2 Mammogram [id number] 6 month follow-up LATERALITY: (B)
== END 2020-08-01 09:31 | disposition home or self-care (01) ==
LOC: DI 09:30
PROVIDERS: ATTEND Surgery
DX: R92.2 Inconclusive mammogram (principal); C50.212 Malignant neoplasm of upper-inner quadrant of left female breast
CPT/HCPCS: 77066; G0279

== ENCOUNTER 2021-03-11 11:03 | Outpatient (CLI) | payer MEDICARE, OTHER ==
--- NOTE | 2021-03-12 08:52 | Mammography Report ---
UNILATERAL RIGHT DIGITAL DIAGNOSTIC MAMMOGRAM 3D/2D: 03/11/2021 CLINICAL: Post right lumpectomy. Comparison is made to exams dated: 08/01/2020 mammogram, 12/17/2019 specimen, 12/17/2019 localization, 09/25/2019 breast MRI, 08/20/2019 mammogram, and 08/20/2019 ultrasound - [facility]. The tissue of right breast is heterogeneously dense. This may lower the sensitivity of mammography. There is irregular equal density architectural distortion with indistinct margins in the right breast at 11 o'clock posterior depth. There are surgical clips, a post-surgical scar, skin retraction, thic kening, and trabecular thickening. The findings are not significantly changed and correlate with grisel or surgery. No other significant masses or calcifications are seen in the breast. IMPRESSION: BENIGN The post-surgical changes in the upper outer quadrant of the right breast are stable and are benign. There is no mammographic evidence of malignancy. Return to annual mammogram screening schedule is recommended. This exam was interpreted at Station ID: [id number]. NOTE: For mammograms, a report in lay terms will be sent to the patient. Approximately 15% of breast malignancies will not be visualized mammographically. In the management of a palpable breast mass, a negative mammogram must not discourage biopsy of a clinically suspicious lesion. Electronically Signed By: Toño Salguero M.D. ddp/:03/11/2021 12:23:40 ACR BI-RADS Category 2: Benign Finding(s) 3342F PARENCHYMAL PATTERN: (D) - The breast(s) demonstrate(s) heterogeneously dense fibroglandular theresa crawford. BI-RADS CATEGORY: (2) - 2 RECOMMENDATION: (ANNUAL) - Recommend routine annual screening mammography. [id number] return to screening LATERALITY: (B)
== END 2021-03-11 11:04 | disposition home or self-care (01) ==
LOC: DI 11:03
PROVIDERS: ATTEND Surgery
DX: C50.211 Malignant neoplasm of upper-inner quadrant of right female breast (principal)

== ENCOUNTER 2021-08-21 10:27 | Outpatient (CLI) | payer MEDICARE, OTHER ==
--- NOTE | 2021-08-21 13:50 | XRAY Report ---
PROCEDURE: Wrist 4 View RT INDICATIONS: WRIST PAIN, RIGHT TECHNIQUE: 4 views of the wrist were acquired. COMPARISON: Not available. FINDINGS: Bones: There is a distal radial metaphyseal fracture with mild impaction. No dislocations. No suspic ious bony lesions. 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 Scaphoid view: Scaphoid appears intact. Soft tissues: No suspicious soft tissue calcifications. Soft tissue swelling. IMPRESSION: 1. Distal radial metaphyseal fracture with mild impaction. 2. Severe degenerative joint disease. Reviewed by: Marisol Ceballos MD on 08/21/2021 1:49 PM PST Approved by: Marisol Ceballos MD on 08/21/2021 1:49 PM PST Station ID: [id number]
== END 2021-08-21 23:59 | disposition home or self-care (01) ==
LOC: DI.N 10:27
PROVIDERS: ATTEND Family Medicine
DX: S52.591A Other fractures of lower end of right radius, initial encounter for closed fracture (principal); M19.031 Primary osteoarthritis, right wrist

== ENCOUNTER 2021-09-28 08:32 | Outpatient (CLI) | payer MEDICARE, OTHER ==
--- NOTE | 2021-09-28 11:36 | XRAY Report ---
PROCEDURE: Wrist 3 View RT INDICATIONS: WRIST FRACTURE TECHNIQUE: 3 views of the wrist were acquired. COMPARISON: 08/21/2021 FINDINGS: Bones: Transverse distal radial metaphyseal fracture is redemonstrated, now with slightly more impact ion and increased dorsal angulation. Radiocarpal alignment and distal radioulnar joint remains normal . There are severe degenerative changes at the triscaphe articulation and moderate degenerative parmar e at the first CMC joint. No suspicious bony lesions. Soft tissues: There is trace chondrocalcinosis of the lunotriquetral ligament. Probable dystrophic ca lcification at the first CMC joint ventrally. IMPRESSION: 1. Slight further impaction and angulation of the distal radius fracture. 2. Degenerative changes in the wrist as described above. Reviewed by: Angelica Bazan MD on 09/28/2021 11:35 AM PDT Approved by: Angelica Bazan MD on 09/28/2021 11:35 AM PDT Station ID: [id number]
== END 2021-09-28 23:59 | disposition home or self-care (01) ==
LOC: DI.WOS 08:32
PROVIDERS: ATTEND Orthopaedic Surgery
DX: S52.531A Colles' fracture of right radius, initial encounter for closed fracture (principal); M19.031 Primary osteoarthritis, right wrist

== ENCOUNTER 2021-11-19 15:48 | Outpatient (CLI) | payer MEDICARE, OTHER ==
--- NOTE | 2021-11-19 19:26 | Ultrasound Report ---
PROCEDURE: Pelvic Limited or F/U INDICATIONS: RIGHT GROIN MASS TECHNIQUE: Real-time transabdominal scanning was performed of the pelvic organs, with image documentation. COMPARISON: None. FINDINGS: Mixed cystic and solid mass within the right groin corresponding to the palpable abnormali ty measuring 4.5 x 3.6 x 4.4 cm. Mild internal vascularity. IMPRESSION: Mixed cystic and solid mass within the right groin with internal vascularity. Differenti al would include both benign and malignant etiologies. If indicated, CT could be performed for furthe r assessment. Reviewed by: ANGELICA Guzman on 11/19/2021 7:25 PM PDT Approved by: Andrei Lennon MD on 11/19/2021 7:25 PM PDT Station ID: [id number]
== END 2021-11-19 15:49 | disposition home or self-care (01) ==
LOC: DI 15:48
PROVIDERS: ATTEND Family Medicine
DX: R19.03 Right lower quadrant abdominal swelling, mass and lump (principal)

== ENCOUNTER 2022-01-10 12:12 | Outpatient (CLI) | payer MEDICARE, OTHER ==
[2022-01-10 12:34] LABS: CREATININE 0.8 mg/dL (0.4-1.0)
== END 2022-01-10 12:13 | disposition home or self-care (01) ==
LOC: LAB 12:12
PROVIDERS: ATTEND Family Medicine
DX: R19.03 Right lower quadrant abdominal swelling, mass and lump (principal)
CPT/HCPCS: 36415; 82565

== ENCOUNTER 2022-01-11 07:54 | Outpatient (CLI) | payer MEDICARE, OTHER ==
[2022-01-11] MEDS ORDERED: GADOBUTROL 7.5 MMOL/7.5 ML VIAL ONE (08:20)
--- NOTE | 2022-01-11 09:54 | MRI Report ---
PROCEDURE: Pelvis W/WO INDICATIONS: RIGHT GROIN MASS TECHNIQUE: MR images were obtained pelvis with and without contrast using multiple sequences and mult iple planes. COMPARISON: Ultrasound November 19, 2021 FINDINGS: Lower abdomen: No bowel obstruction no abdominal lymphadenopathy. Bladder: unremarkable, underdistended. Rectum: colonic diverticula are present. No mass visualized. Reproductive organs: Endometrium is within normal limits. Fibroid uterus, including a dominant fundal fibroid (FIGO 2-5) m easuring about 5.5 x 3.2 cm. Exophytic fibroid complex with calcifications in the anterior lower uter ine segment measuring 7.5 x 4.2 cm in aggregate (FIGO 6 or 7). Adnexal structures within normal limits. Pelvic wall: The appendix Is seen in the right inguinal hernia measuring about 11 mm in thickness, wi th mild periappendiceal edema (5/5, 6). Bones: Left hip arthroplasty limiting evaluation of surrounding structures. No suspicious osseous les ion. IMPRESSION: Suspected resolving appendicitis in the right inguinal hernia (Amyand hernia) . Allowing for differen neena in modality, inflammatory findings have decreased compared to November 19, 2021. Recommend patient fol low up to ensure that this is consistent with clinical time course and history. Fibroid uterus, including a dominant fundal FIGO 2-5 fibroid and anterior lower uterine segment FIGO 6 or 7 fibroid aggregate. Reviewed by: Irving Larson MD on 01/11/2022 9:52 AM PDT Approved by: Irving Larson MD on 01/11/2022 9:52 AM PDT Station ID: [id number]
[2022-01-11] MEDS ORDERED: GADOBUTROL 7.5 MMOL/7.5 ML VIAL IVP ONE (16:52)
== END 2022-01-11 07:55 | disposition home or self-care (01) ==
LOC: DI 07:54
PROVIDERS: ATTEND Family Medicine
DX: R19.03 Right lower quadrant abdominal swelling, mass and lump (principal); D25.9 Leiomyoma of uterus, unspecified
CPT/HCPCS: 72197; A9585

== ENCOUNTER 2022-01-13 20:09 | Outpatient (CLI) | payer MEDICARE, OTHER | END 2022-01-13 23:59 | disposition critical access hospital (66) | LOC: EMS 20:09 | DX: S00.03XA Contusion of scalp, initial encounter (principal); S09.90XA Unspecified injury of head, initial encounter; W01.190A Fall on same level from slipping, tripping and stumbling with subsequent striking against furniture, initial encounter; Y93.01 Activity, walking, marching and hiking; Y92.009 Unspecified place in unspecified non-institutional (private) residence as the place of occurrence of the external cause; R42 Dizziness and giddiness | CPT/HCPCS: A0425; A0429; A0888 ==

== ENCOUNTER 2022-01-13 20:23 | Emergency (ER) | payer MEDICARE, OTHER ==
--- OUTSIDE RECORDS SUMMARY | 2022-01-13 20:38 | EXTERNAL MEDICAL SUMMARY RPT | Continuity of Care Document ---
:1945 Author Organization [facility] Address [address] [place] [address] Phone Allergies No information. Encounters No information. Functional Status No information. Immunizations No information. Medications date description facility Escitalopram [address] [facility] Problems No information. Procedures date description facility Diagnosis [facility] Finding [facility] General Physician [facility] Results/Labs test date author facility value unit interpret ation Result panel 1 (unknown) (no (unknown) (unknown) (no value) (units (unk nown) date) unknown) (unknown) (no (unknown) (unknown) (no value) (units (unk nown) date) unknown) (unknown) (no (unknown) (unknown) (no value) (units (unk nown) date) unknown) (unknown) (no (unknown) (unknown) 10/28/21 (units (unkno wn) date) unknown) (unknown) (no (unknown) (unknown) 08:54 (units (unkno wn) date) unknown) (unknown) (no (unknown) (unknown) [place] [address] (unit s (unknown) date) unknown) (unknown) (no (unknown) (unknown) Draft (units (unkno wn) date) unknown) (unknown) (no (unknown) (unknown) Pain Visit (units (unk nown) date) unknown) (unknown) (no (unknown) (unknown) [facility] (unit s (unknown) date) Management unknown) (unknown) (no (unknown) (unknown) (no value) (units (unk nown) date) unknown) (unknown) (no (unknown) (unknown) 10/28/21 (units (unkno wn) date) unknown) (unknown) (no (unknown) (unknown) 10/28/21] (units (unkn own) date) unknown) (unknown) (no (unknown) (unknown) 01/12/21 [History (units (unknown) date) Confirmed 10/28/21] unknown) (unknown) (no (unknown) (unknown) 05/28/19 [History (units (unknown) date) Confirmed 10/28/21] unknown) (unknown) (no (unknown) (unknown) [id number] (units (unkno wn) date) unknown) (unknown) (no (unknown) (unknown) Accompanied by: (units (unknown) date) Self / Same As unknown) Patient (unknown) (no (unknown) (unknown) Age/Sex: 76 / F (units (unknown) date) Date of Service: unknown) (unknown) (no (unknown) (unknown) Allergies (units (unkn own) date) unknown) (unknown) (no (unknown) (unknown) Anesthesia (units (unk nown) date) unknown) (unknown) (no (unknown) (unknown) Anxiety (units (unkno wn) date) unknown) (unknown) (no (unknown) (unknown) Attending Dr: (units ( unknown) date) Devaughn Ruiz D.O. unknown) (unknown) (no (unknown) (unknown) BMI 23.1 (units (un known) date) unknown) (unknown) (no (unknown) (unknown) BP 132/78 (units (u nknown) date) unknown) (unknown) (no (unknown) (unknown) Blood Pressure (units (unknown) date) Location Lt unknown) brachial (unknown) (no (unknown) (unknown) Breast cancer in (units (unknown) date) female unknown) (unknown) (no (unknown) (unknown) Breast cancer, (units (unknown) date) right (11/2019) unknown) (unknown) (no (unknown) (unknown) Confirmed 10/28/21] (unit s (unknown) date) unknown) (unknown) (no (unknown) (unknown) : 1945 (units (unknown) date) Acct:[id number] unknown) (unknown) (no (unknown) (unknown) Degenerative joint (units (unknown) date) disease (DJD) of hip unknown) (unknown) (no (unknown) (unknown) 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 unknown) (unknown) (no (unknown) (unknown) Documented By: (units (unknown) date) Devaughn Ruiz D.O. unknown) 10/28/21 0852 (unknown) (no (unknown) (unknown) Easy bruisability (units (unknown) date) unknown) (unknown) (no (unknown) (unknown) Family History (units (unknown) date) (Reviewed 09/16/21 @ unknown) 15:50 by Devaughn Ruiz DO) (unknown) (no (unknown) (unknown) Footdrop (units (unkno wn) date) unknown) (unknown) (no (unknown) (unknown) Fracture of left (units (unknown) date) tibial plateau unknown) () (unknown) (no (unknown) (unknown) Gait instability (units (unknown) date) unknown) (unknown) (no (unknown) (unknown) HAD CONSULT WITH DR (unit s (unknown) date) MOURNING YESTERDAY unknown) (unknown) (no (unknown) (unknown) HTN (hypertension) (units (unknown) date) unknown) (unknown) (no (unknown) (unknown) Height 5 ft 8 in (unit s (unknown) date) unknown) (unknown) (no (unknown) (unknown) History of (units (unk nown) date) bilateral tubal unknown) ligation (unknown) (no (unknown) (unknown) History of (units (unk nown) date) lumpectomy of right unknown) breast () (unknown) (no (unknown) (unknown) History of (units (unk nown) date) meningioma of the unknown) brain (unknown) (no (unknown) (unknown) History of total (units (unknown) date) left knee unknown) replacement (-2012) (unknown) (no (unknown) (unknown) Hx of appendectomy (units (unknown) date) unknown) (unknown) (no (unknown) (unknown) Hx of bilateral (units (unknown) date) cataract extraction unknown) (unknown) (no (unknown) (unknown) Hx of craniotomy (units (unknown) date) (2000) unknown) (unknown) (no (unknown) (unknown) Hx of dilation and (units (unknown) date) curettage unknown) (unknown) (no (unknown) (unknown) Hx of hernia repair (unit s (unknown) date) unknown) (unknown) (no (unknown) (unknown) Hx of tonsillectomy (unit s (unknown) date) unknown) (unknown) (no (unknown) (unknown) Intake (units (unkno wn) date) unknown) (unknown) (no (unknown) (unknown) Intake Clinical (units (unknown) date) Staff unknown) (unknown) (no (unknown) (unknown) Intake Note: (units (u nknown) date) unknown) (unknown) (no (unknown) (unknown) Intake performed (units (unknown) date) by: Sherlyn Meade unknown) (unknown) (no (unknown) (unknown) Is patient in (units ( unknown) date) pain?: Yes (HERE FOR unknown) LUMBAR SPINE) Pain scale (1-10): 9 (unknown) (no (unknown) (unknown) Left foot drop (units (unknown) date) unknown) (unknown) (no (unknown) (unknown) Loc: PAIN (units (unkn own) date) unknown) (unknown) (no (unknown) (unknown) 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 (unknown) (no (unknown) (unknown) Medical History (units (unknown) date) (Reviewed 09/16/21 @ unknown) 15:50 by Devaughn Ruiz DO) (unknown) (no (unknown) (unknown) Medications (units (un known) date) unknown) (unknown) (no (unknown) (unknown) No Known Drug (units ( unknown) date) Allergies Allergy unknown) (Verified 10/28/21 08:53) (unknown) (no (unknown) (unknown) Osteoarthritis (units (unknown) date) unknown) (unknown) (no (unknown) (unknown) Oxygen Delivery (units (unknown) date) Method room air unknown) (unknown) (no (unknown) (unknown) PFSH (units (unkno wn) date) unknown) (unknown) (no (unknown) (unknown) Pain Scale (units (unk nown) date) unknown) (unknown) (no (unknown) (unknown) Patient: (units (unkno wn) date) Caroline Hernández unknown) MR#: [id number] (unknown) (no (unknown) (unknown) Position Sitting (unit s (unknown) date) unknown) (unknown) (no (unknown) (unknown) Pulse 65 (units (un known) date) unknown) (unknown) (no (unknown) (unknown) Pulse Oximetry (%) (units (unknown) date) 99 unknown) (unknown) (no (unknown) (unknown) Pulse Source (units (u nknown) date) Monitor unknown) (unknown) (no (unknown) (unknown) Reason For Visit (units (unknown) date) unknown) (unknown) (no (unknown) (unknown) S/P total hip (units ( unknown) date) arthroplasty unknown) (unknown) (no (unknown) (unknown) Sarcoidosis (1999) (units (unknown) date) unknown) (unknown) (no (unknown) (unknown) Signed By: (units (unk nown) date) unknown) (unknown) (no (unknown) (unknown) Smoking Status: (units (unknown) date) Former smoker unknown) (unknown) (no (unknown) (unknown) Social History (units (unknown) date) unknown) (unknown) (no (unknown) (unknown) Spondylolisthesis (units (unknown) date) at L4-L5 level unknown) (unknown) (no (unknown) (unknown) Status post lumbar (units (unknown) date) laminectomy unknown) (unknown) (no (unknown) (unknown) Surgical History (units (unknown) date) (Reviewed 09/16/21 @ unknown) 15:50 by Devaughn Ruiz DO) (unknown) (no (unknown) (unknown) Temp 98.3 F (units (unknown) date) unknown) (unknown) (no (unknown) (unknown) Temp Source (units (un known) date) Temporal Artery Scan unknown) (unknown) (no (unknown) (unknown) This note may have (units (unknown) date) been all or unknown) partially generated using voice recognition (unknown) (no (unknown) (unknown) Tinnitus (units (unkno wn) date) unknown) (unknown) (no (unknown) (unknown) Tobacco + Substance (unit s (unknown) date) Use unknown) (unknown) (no (unknown) (unknown) Tobacco Status (units (unknown) date) unknown) (unknown) (no (unknown) (unknown) Unknown No (units (u nknown) date) pertinent family unknown) history (unknown) (no (unknown) (unknown) Visit Reasons: (units (unknown) date) Follow Up Surgery unknown) Consult + Meds, HERE FOR LUMBAR (unknown) (no (unknown) (unknown) Vitals (units (unkno wn) date) unknown) (unknown) (no (unknown) (unknown) Weight 152 lb 8 (units (unknown) date) oz unknown) (unknown) (no (unknown) (unknown) [History Confirmed (units (unknown) date) 10/28/21] unknown) (unknown) (no (unknown) (unknown) [Rx Confirmed (units ( unknown) date) 10/28/21] unknown) (unknown) (no (unknown) (unknown) alcohol intake: (units (unknown) date) current unknown) (unknown) (no (unknown) (unknown) anastrozole 1 mg (units (unknown) date) tablet 1 mg PO unknown) BEDTIME 05/19/21 [History Confirmed 10/28/21] (unknown) (no (unknown) (unknown) bupropion HCl 75 mg (unit s (unknown) date) tablet 75 mg PO BID unknown) 05/19/21 [History Confirmed 10/28/21] (unknown) (no (unknown) (unknown) calcium carbonate (units (unknown) date) 500 mg calcium unknown) (1,250 mg) tablet 600 mg PO BID 01/12/21 (unknown) (no (unknown) (unknown) celecoxib 200 mg (units (unknown) date) capsule (Celebrex) unknown) 200 mg PO DAILY #90 cap 08/18/21 [Rx (unknown) (no (unknown) (unknown) cholecalciferol (units (unknown) date) (vitamin D3) 50 mcg unknown) (2,000 unit) capsule 50 mcg PO DAILY (unknown) (no (unknown) (unknown) escitalopram (units (u nknown) date) oxalate 5 mg tablet unknown) 5 mg PO DAILY tab 10/28/21 [History Confirmed (unknown) (no (unknown) (unknown) gabapentin 100 mg (units (unknown) date) capsule 200 mg PO unknown) BEDTIME PRN #180 cap MDD 1-2 PO Tid 06/02/21 (unknown) (no (unknown) (unknown) have occurred. If (units (unknown) date) there are any unknown) questions, please contact the Medical Records (unknown) (no (unknown) (unknown) household members: (units (unknown) date) spouse unknown) (unknown) (no (unknown) (unknown) losartan 50 mg (units (unknown) date) tablet 50 mg PO unknown) BEDTIME 05/28/19 [History Confirmed 10/28/21] (unknown) (no (unknown) (unknown) may occur. (units (unk nown) date) Occasional unknown) wrong-word or 'sound-alike' substitutions may have (unknown) (no (unknown) (unknown) metoprolol (units (unk nown) date) succinate 50 mg unknown) tablet,extended release 24 hr 50 mg PO BEDTIME (unknown) (no (unknown) (unknown) occurred due to the (unit s (unknown) date) inherent limitations unknown) of voice recognition software. Please (unknown) (no (unknown) (unknown) read the note (units ( unknown) date) carefully and unknown) recognize, using context, where these substitutions (unknown) (no (unknown) (unknown) software. 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 Result panel 2 (unknown) (no (unknown) (unknown) (no value) (units (unk nown) date) unknown) (unknown) (no (unknown) (unknown) (no value) (units (unk nown) date) unknown) (unknown) (no (unknown) (unknown) (no value) (units (unk nown) date) unknown) (unknown) (no (unknown) (unknown) 10/28/21 (units (unkno wn) date) unknown) (unknown) (no (unknown) (unknown) 08:54 (units (unkno wn) date) unknown) (unknown) (no (unknown) (unknown) [place] [id number] (unit s (unknown) date) unknown) (unknown) (no (unknown) (unknown) Draft (units (unkno wn) date) unknown) (unknown) (no (unknown) (unknown) Pain Visit (units (unk nown) date) unknown) (unknown) (no (unknown) (unknown) [facility] (unit s (unknown) date) Management unknown) (unknown) (no (unknown) (unknown) (no value) (units (unk nown) date) unknown) (unknown) (no (unknown) (unknown) 10/28/21 (units (unkno wn) date) unknown) (unknown) (no (unknown) (unknown) 10/28/21] (units (unkn own) date) unknown) (unknown) (no (unknown) (unknown) 01/12/21 [History (units (unknown) date) Confirmed 10/28/21] unknown) (unknown) (no (unknown) (unknown) 05/28/19 [History (units (unknown) date) Confirmed 10/28/21] unknown) (unknown) (no (unknown) (unknown) [id number] (units (unkno wn) date) unknown) (unknown) (no (unknown) (unknown) Accompanied by: (units (unknown) date) Self / Same As unknown) Patient (unknown) (no (unknown) (unknown) Age/Sex: 76 / F (units (unknown) date) Date of Service: unknown) (unknown) (no (unknown) (unknown) All other systems (units (unknown) date) reviewed and are unknown) unremarkable except as noted in HPI. (unknown) (no (unknown) (unknown) Allergies (units (unkn own) date) unknown) (unknown) (no (unknown) (unknown) Anesthesia (units (unk nown) date) unknown) (unknown) (no (unknown) (unknown) Anxiety (units (unkno wn) date) unknown) (unknown) (no (unknown) (unknown) Attending Dr: (units ( unknown) date) Devaughn Ruiz D.O. unknown) (unknown) (no (unknown) (unknown) BMI 23.1 (units (un known) date) unknown) (unknown) (no (unknown) (unknown) BP 132/78 (units (u nknown) date) unknown) (unknown) (no (unknown) (unknown) Blood Pressure (units (unknown) date) Location Lt unknown) brachial (unknown) (no (unknown) (unknown) Breast cancer in (units (unknown) date) female unknown) (unknown) (no (unknown) (unknown) Breast cancer, (units (unknown) date) right (11/2019) unknown) (unknown) (no (unknown) (unknown) Confirmed 10/28/21] (unit s (unknown) date) unknown) (unknown) (no (unknown) (unknown) : 1945 (units (unknown) date) Acct:[id number] unknown) (unknown) (no (unknown) (unknown) Degenerative joint (units (unknown) date) disease (DJD) of hip unknown) (unknown) (no (unknown) (unknown) Degenerative joint (units (unknown) date) disease of both hips unknown) (unknown) (no (unknown) (unknown) Denies recent (units ( unknown) date) trauma, fever or unknown) weight loss of unknown origin, immunocompromise (unknown) (no (unknown) (unknown) Depression (units (unk nown) date) unknown) (unknown) (no (unknown) (unknown) Dept at (units (unkno wn) date) . unknown) (unknown) (no (unknown) (unknown) Documented By: (units (unknown) date) Devaughn Ruiz D.O. unknown) 10/28/21 0852 (unknown) (no (unknown) (unknown) Easy bruisability (units (unknown) date) unknown) (unknown) (no (unknown) (unknown) Endorses right (units (unknown) date) cortical motor unknown) meningioma effecting left lower extremity, left (unknown) (no (unknown) (unknown) Family History (units (unknown) date) (Reviewed 09/16/21 @ unknown) 15:50 by Devaughn Ruiz DO) (unknown) (no (unknown) (unknown) Footdrop (units (unkno wn) date) unknown) (unknown) (no (unknown) (unknown) Fracture of left (units (unknown) date) tibial plateau unknown) (-2008) (unknown) (no (unknown) (unknown) Gait instability (units (unknown) date) unknown) (unknown) (no (unknown) (unknown) HAD CONSULT WITH (unit s (unknown) date) MOURNING YESTERDAY unknown) (unknown) (no (unknown) (unknown) HTN (hypertension) (units (unknown) date) unknown) (unknown) (no (unknown) (unknown) Height 5 ft 8 in (unit s (unknown) date) unknown) (unknown) (no (unknown) (unknown) History of (units (unk nown) date) bilateral tubal unknown) ligation (unknown) (no (unknown) (unknown) History of (units (unk nown) date) lumpectomy of right unknown) breast () (unknown) (no (unknown) (unknown) History of (units (unk nown) date) meningioma of the unknown) brain (unknown) (no (unknown) (unknown) History of total (units (unknown) date) left knee unknown) replacement () (unknown) (no (unknown) (unknown) Hx of appendectomy (units (unknown) date) unknown) (unknown) (no (unknown) (unknown) Hx of bilateral (units (unknown) date) cataract extraction unknown) (unknown) (no (unknown) (unknown) Hx of craniotomy (units (unknown) date) (1999) unknown) (unknown) (no (unknown) (unknown) Hx of dilation and (units (unknown) date) curettage unknown) (unknown) (no (unknown) (unknown) Hx of hernia repair (unit s (unknown) date) unknown) (unknown) (no (unknown) (unknown) Hx of tonsillectomy (unit s (unknown) date) unknown) (unknown) (no (unknown) (unknown) Intake (units (unkno wn) date) unknown) (unknown) (no (unknown) (unknown) Intake Clinical (units (unknown) date) Staff unknown) (unknown) (no (unknown) (unknown) Intake Note: (units (u nknown) date) unknown) (unknown) (no (unknown) (unknown) Intake performed (units (unknown) date) by: Sherlyn Meade unknown) (unknown) (no (unknown) (unknown) Is patient in (units ( unknown) date) pain?: Yes (HERE FOR unknown) LUMBAR SPINE) Pain scale (1-10): 9 (unknown) (no (unknown) (unknown) Left foot drop (units (unknown) date) unknown) (unknown) (no (unknown) (unknown) Loc: PAIN (units (unkn own) date) unknown) (unknown) (no (unknown) (unknown) 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 (unknown) (no (unknown) (unknown) Medical History (units (unknown) date) (Reviewed 09/16/21 @ unknown) 15:50 by Devaughn Ruiz DO) (unknown) (no (unknown) (unknown) Medications (units (un known) date) unknown) (unknown) (no (unknown) (unknown) Neuro: System (units ( unknown) date) reviewed and no unknown) additional complaints, except as documented. (unknown) (no (unknown) (unknown) No Known Drug (units ( unknown) date) Allergies Allergy unknown) (Verified 10/28/21 08:53) (unknown) (no (unknown) (unknown) Osteoarthritis (units (unknown) date) unknown) (unknown) (no (unknown) (unknown) Oxygen Delivery (units (unknown) date) Method room air unknown) (unknown) (no (unknown) (unknown) PFSH (units (unkno wn) date) unknown) (unknown) (no (unknown) (unknown) Pain Scale (units (unk nown) date) unknown) (unknown) (no (unknown) (unknown) Patient: (units (unkno wn) date) Caroline Hernández L unknown) MR#: [id number] (unknown) (no (unknown) (unknown) Position Sitting (unit s (unknown) date) unknown) (unknown) (no (unknown) (unknown) Pulse 65 (units (un known) date) unknown) (unknown) (no (unknown) (unknown) Pulse Oximetry (%) (units (unknown) date) 99 unknown) (unknown) (no (unknown) (unknown) Pulse Source (units (u nknown) date) Monitor unknown) (unknown) (no (unknown) (unknown) ROS (units (unkno wn) date) unknown) (unknown) (no (unknown) (unknown) ROS Narrative (units ( unknown) date) unknown) (unknown) (no (unknown) (unknown) ROS Narrative: (units (unknown) date) unknown) (unknown) (no (unknown) (unknown) Reason For Visit (units (unknown) date) unknown) (unknown) (no (unknown) (unknown) S/P total hip (units ( unknown) date) arthroplasty unknown) (unknown) (no (unknown) (unknown) Sarcoidosis (2000) (units (unknown) date) unknown) (unknown) (no (unknown) (unknown) Signed By: (units (unk nown) date) unknown) (unknown) (no (unknown) (unknown) Smoking Status: (units (unknown) date) Former smoker unknown) (unknown) (no (unknown) (unknown) Social History (units (unknown) date) unknown) (unknown) (no (unknown) (unknown) Spondylolisthesis (units (unknown) date) at L4-L5 level unknown) (unknown) (no (unknown) (unknown) Status post lumbar (units (unknown) date) laminectomy unknown) (unknown) (no (unknown) (unknown) Surgical History (units (unknown) date) (Reviewed 09/16/21 @ unknown) 15:50 by Devaughn Ruiz DO) (unknown) (no (unknown) (unknown) Temp 98.3 F (units (unknown) date) unknown) (unknown) (no (unknown) (unknown) Temp Source (units (un known) date) Temporal Artery Scan unknown) (unknown) (no (unknown) (unknown) This note may have (units (unknown) date) been all or unknown) partially generated using voice recognition (unknown) (no (unknown) (unknown) Tinnitus (units (unkno wn) date) unknown) (unknown) (no (unknown) (unknown) Tobacco + Substance (unit s (unknown) date) Use unknown) (unknown) (no (unknown) (unknown) Tobacco Status (units (unknown) date) unknown) (unknown) (no (unknown) (unknown) Unknown No (units (u nknown) date) pertinent family unknown) history (unknown) (no (unknown) (unknown) Visit Reasons: (units (unknown) date) Follow Up Surgery unknown) Consult + Meds, HERE FOR LUMBAR (unknown) (no (unknown) (unknown) Vitals (units (unkno wn) date) unknown) (unknown) (no (unknown) (unknown) Weight 152 lb 8 (units (unknown) date) oz unknown) (unknown) (no (unknown) (unknown) [History Confirmed (units (unknown) date) 10/28/21] unknown) (unknown) (no (unknown) (unknown) [Rx Confirmed (units ( unknown) date) 10/28/21] unknown) (unknown) (no (unknown) (unknown) alcohol intake: (units (unknown) date) current unknown) (unknown) (no (unknown) (unknown) anastrozole 1 mg (units (unknown) date) tablet 1 mg PO unknown) BEDTIME 05/19/21 [History Confirmed 10/28/21] (unknown) (no (unknown) (unknown) bupropion HCl 75 mg (unit s (unknown) date) tablet 75 mg PO BID unknown) 05/19/21 [History Confirmed 10/28/21] (unknown) (no (unknown) (unknown) calcium carbonate (units (unknown) date) 500 mg calcium unknown) (1,250 mg) tablet 600 mg PO BID 01/12/21 (unknown) (no (unknown) (unknown) celecoxib 200 mg (units (unknown) date) capsule (Celebrex) unknown) 200 mg PO DAILY #90 cap 08/18/21 [Rx (unknown) (no (unknown) (unknown) cholecalciferol (units (unknown) date) (vitamin D3) 50 mcg unknown) (2,000 unit) capsule 50 mcg PO DAILY (unknown) (no (unknown) (unknown) escitalopram (units (u nknown) date) oxalate 5 mg tablet unknown) 5 mg PO DAILY tab 10/28/21 [History Confirmed (unknown) (no (unknown) (unknown) gabapentin 100 mg (units (unknown) date) capsule 200 mg PO unknown) BEDTIME PRN #180 cap MDD 1-2 PO Tid 06/02/21 (unknown) (no (unknown) (unknown) have occurred. If (units (unknown) date) there are any unknown) questions, please contact the Medical Records (unknown) (no (unknown) (unknown) household members: (units (unknown) date) spouse unknown) (unknown) (no (unknown) (unknown) intravenous drug (units (unknown) date) use, sustained unknown) glucocorticoid use, osteoporosis, or a focal (unknown) (no (unknown) (unknown) losartan 50 mg (units (unknown) date) tablet 50 mg PO unknown) BEDTIME 05/28/19 [History Confirmed 10/28/21] (unknown) (no (unknown) (unknown) may occur. (units (unk nown) date) Occasional unknown) wrong-word or 'sound-alike' substitutions may have (unknown) (no (unknown) (unknown) metoprolol (units (unk nown) date) succinate 50 mg unknown) tablet,extended release 24 hr 50 mg PO BEDTIME (unknown) (no (unknown) (unknown) neurological (units (u nknown) date) deficit with unknown) progressive or disabling symptoms. (unknown) (no (unknown) (unknown) occurred due to the (unit s (unknown) date) inherent limitations unknown) of voice recognition software. Please (unknown) (no (unknown) (unknown) or (units (unkno wn) date) immunosuppressive unknown) therapy, previous or current cancer diagnosis, history of (unknown) (no (unknown) (unknown) read the note (units ( unknown) date) carefully and unknown) recognize, using context, where these substitutions (unknown) (no (unknown) (unknown) software. 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 (unknown) (no (unknown) (unknown) total knee (units (unk nown) date) arthroplasty 2011, unknown) post lumbar laminectomy, left hip djd Result panel 3 (unknown) (no (unknown) (unknown) (no value) (units (unk nown) date) unknown) (unknown) (no (unknown) (unknown) (no value) (units (unk nown) date) unknown) (unknown) (no (unknown) (unknown) (no value) (units (unk nown) date) unknown) (unknown) (no (unknown) (unknown) 10/28/21 (units (unkno wn) date) unknown) (unknown) (no (unknown) (unknown) 08:54 (units (unkno wn) date) unknown) (unknown) (no (unknown) (unknown) [place] [id number] (unit s (unknown) date) unknown) (unknown) (no (unknown) (unknown) Draft (units (unkno wn) date) unknown) (unknown) (no (unknown) (unknown) Pain Visit (units (unk nown) date) unknown) (unknown) (no (unknown) (unknown) [facility] (unit s (unknown) date) Management unknown) (unknown) (no (unknown) (unknown) (no value) (units (unk nown) date) unknown) (unknown) (no (unknown) (unknown) Her physical (units (u nknown) date) therapist in her unknown) attributed this to her lumbar slip at L4-5 with (unknown) (no (unknown) (unknown) L2-L3, and (units (unk nown) date) unknown) (unknown) (no (unknown) (unknown) L5-S1. Note (units (un known) date) unknown) (unknown) (no (unknown) (unknown) PATIENT NAME: , (unit s (unknown) date) CAROLINE JacksonLindy : unknown) 1945 (unknown) (no (unknown) (unknown) absence of (units (unk nown) date) unknown) (unknown) (no (unknown) (unknown) orthopedic (units (unk nown) date) evaluation at unknown) [facility] tomorrow.? She reports (unknown) (no (unknown) (unknown) with transforaminal (unit s (unknown) date) EDY last on unknown) 08/26/2020 prior to her total hip arthroplasty. (unknown) (no (unknown) (unknown) 09/01/2021.? She (units (unknown) date) reports no unknown) difficulty with the procedure itself does report (unknown) (no (unknown) (unknown) 10/28/21 (units (unkno wn) date) unknown) (unknown) (no (unknown) (unknown) 01/12/21 [History (units (unknown) date) Confirmed 09/16/21] unknown) (unknown) (no (unknown) (unknown) 1. Multilevel (units ( unknown) date) degenerative disc unknown) and facet disease, as well as ligamentum flavum (unknown) (no (unknown) (unknown) 1. Multilevel (units ( unknown) date) degenerative disc unknown) disease and arthropathy results in varying (unknown) (no (unknown) (unknown) 1. Severe (units (unkn own) date) degenerative disc unknown) and facet disease in lumbar spine. (unknown) (no (unknown) (unknown) 11:01 (units (unkno wn) date) unknown) (unknown) (no (unknown) (unknown) 05/26/2021 with (unit s (unknown) date) Iveth Emmanuel at unknown) scheduled [facility].? (unknown) (no (unknown) (unknown) 05/28/19 [History (units (unknown) date) Confirmed 09/16/21] unknown) (unknown) (no (unknown) (unknown) 2. Grade 1-2 (units (u nknown) date) anterolisthesis at unknown) L4-L5 (unknown) (no (unknown) (unknown) 2. L4 decompressive (unit s (unknown) date) laminectomy without unknown) instrumentation, and grade 2 anterior (unknown) (no (unknown) (unknown) 2. Postsurgical (units (unknown) date) sequelae at L4. unknown) (unknown) (no (unknown) (unknown) 3. Multilevel canal (unit s (unknown) date) stenoses, worst at unknown) L3-L4 and L4-L5 where there are moderate (unknown) (no (unknown) (unknown) [id number] (units (unkno wn) date) unknown) (unknown) (no (unknown) (unknown) 4-6 weeks when she (units (unknown) date) developed increased unknown) tone involving the left lower extremity.? (unknown) (no (unknown) (unknown) 4. Mild multilevel (units (unknown) date) foraminal stenoses. unknown) (unknown) (no (unknown) (unknown) : STATION ID: (units ( unknown) date) [id number] unknown) (unknown) (no (unknown) (unknown) ? (units (unkno wn) date) unknown) (unknown) (no (unknown) (unknown) ACCESSION#: (units (un known) date) [id number] EXAM unknown) DATE: 06/07/2019 (unknown) (no (unknown) (unknown) Accompanied by: (units (unknown) date) Self / Same As unknown) Patient (unknown) (no (unknown) (unknown) Age/Sex: 76 / F (units (unknown) date) Date of Service: unknown) (unknown) (no (unknown) (unknown) All other systems (units (unknown) date) reviewed and are unknown) unremarkable except as noted in HPI. (unknown) (no (unknown) (unknown) Allergies (units (unkn own) date) unknown) (unknown) (no (unknown) (unknown) Anesthesia (units (unk nown) date) unknown) (unknown) (no (unknown) (unknown) Anxiety (units (unkno wn) date) unknown) (unknown) (no (unknown) (unknown) Approved by: Karthikeyan (units (unknown) date) Mike Quigley on unknown) 08/21/2021 at 11:12 (unknown) (no (unknown) (unknown) Approved by: Marisol (units (unknown) date) Mike Ceballos on unknown) 08/21/2021 at 17:46 (unknown) (no (unknown) (unknown) Approved by: Micky (units (unknown) date) Venu Boss M.D. on unknown) 05/28/2019 at 11:41 (unknown) (no (unknown) (unknown) Approved by: Esvin (unit s (unknown) date) Mike Choi on unknown) 06/07/2019 at 12:02 (unknown) (no (unknown) (unknown) Attending Dr: (units ( unknown) date) Devaughn Ruiz D.O. unknown) (unknown) (no (unknown) (unknown) BMI 23.1 (units (un known) date) unknown) (unknown) (no (unknown) (unknown) BP 132/78 (units (u nknown) date) unknown) (unknown) (no (unknown) (unknown) Babinski (R/L): - / (unit s (unknown) date) - unknown) (unknown) (no (unknown) (unknown) Blood Pressure (units (unknown) date) Location Lt unknown) brachial (unknown) (no (unknown) (unknown) Bones: 5 (units (unkno wn) date) nonrib-bearing unknown) vertebrae are present. There is grade 1-2 (unknown) (no (unknown) (unknown) Bones: No fractures (unit s (unknown) date) or dislocations. No unknown) suspicious bony lesions. Expected (unknown) (no (unknown) (unknown) Breast cancer in (units (unknown) date) female unknown) (unknown) (no (unknown) (unknown) Breast cancer, (units (unknown) date) right (11/2019) unknown) (unknown) (no (unknown) (unknown) COMPARISON: None. (units (unknown) date) unknown) (unknown) (no (unknown) (unknown) CONTRAST MEDIA: (units (unknown) date) STATION ID: [id number] unknown) (unknown) (no (unknown) (unknown) Chief Complaint (units (unknown) date) unknown) (unknown) (no (unknown) (unknown) Chief Complaint: (units (unknown) date) f/u surgical unknown) consultation for lumbar spondylolisthesis (unknown) (no (unknown) (unknown) Clonus (R/L): - / - (unit s (unknown) date) unknown) (unknown) (no (unknown) (unknown) Confirmed 09/16/21] (unit s (unknown) date) unknown) (unknown) (no (unknown) (unknown) : 1945 (units (unknown) date) Acct:[id number] unknown) (unknown) (no (unknown) (unknown) DTR LE: Patellar (units (unknown) date) (0+/2+); Achilles unknown) (1+/2+) (unknown) (no (unknown) (unknown) Degenerative joint (units (unknown) date) disease (DJD) of hip unknown) (unknown) (no (unknown) (unknown) Degenerative joint (units (unknown) date) disease of both hips unknown) (unknown) (no (unknown) (unknown) Denies recent (units ( unknown) date) trauma, fever or unknown) weight loss of unknown origin, immunocompromise (unknown) (no (unknown) (unknown) Depression (units (unk nown) date) unknown) (unknown) (no (unknown) (unknown) Dept at (units (unkno wn) date) . unknown) (unknown) (no (unknown) (unknown) Details: (units (unkno wn) date) unknown) (unknown) (no (unknown) (unknown) Dictated by: Marisol (units (unknown) date) Mike Ceballos on unknown) 08/21/2021 at 17:43 (unknown) (no (unknown) (unknown) Dictated by: Micky (units (unknown) date) Venu Boss M.D. on unknown) 05/28/2019 at 11:39 (unknown) (no (unknown) (unknown) Dictated by: Esvin (unit s (unknown) date) Mike Choi on unknown) 06/07/2019 at 11:57 (unknown) (no (unknown) (unknown) Documented By: (units (unknown) date) Devaughn Ruiz D.O. 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 (unknown) (no (unknown) (unknown) Extension: 30 (units ( unknown) date) unknown) (unknown) (no (unknown) (unknown) FINDINGS: (units (unkn own) date) unknown) (unknown) (no (unknown) (unknown) FLUORO TIME: (units (u nknown) date) unknown) (unknown) (no (unknown) (unknown) Family History (units (unknown) date) (Reviewed 10/28/21 @ unknown) 09:15 by Devaughn Ruiz DO) (unknown) (no (unknown) (unknown) Flexion: 90 (units (un known) date) unknown) (unknown) (no (unknown) (unknown) Footdrop (units (unkno wn) date) unknown) (unknown) (no (unknown) (unknown) Fracture of left (units (unknown) date) tibial plateau unknown) (-2008) (unknown) (no (unknown) (unknown) Gait instability (units (unknown) date) unknown) (unknown) (no (unknown) (unknown) Gait: foot drop (units (unknown) date) Coordination: normal unknown) (unknown) (no (unknown) (unknown) General Appearance: (unit s (unknown) date) Well-nourished, well unknown) developed in no acute distress (unknown) (no (unknown) (unknown) HAD CONSULT WITH DR (unit s (unknown) date) MOURNING YESTERDAY unknown) (unknown) (no (unknown) (unknown) HPI (units (unkno wn) date) unknown) (unknown) (no (unknown) (unknown) HTN (hypertension) (units (unknown) date) unknown) (unknown) (no (unknown) (unknown) Height 5 ft 8 in (unit s (unknown) date) unknown) (unknown) (no (unknown) (unknown) Hip Adduction (units ( unknown) date) (R/L): 15? / 15? unknown) Hip Abduction (R/L): 40? / 40? (unknown) (no (unknown) (unknown) Hip Exam (units (unkno wn) date) (Bilateral) unknown) (unknown) (no (unknown) (unknown) Hip Flexion (R/L): (units (unknown) date) 120? / 120? Hip unknown) Extension (R/L): 20? / 20? (unknown) (no (unknown) (unknown) Hip IR (R/L): 5? / (units (unknown) date) 5? Hip ER (R/L): unknown) 30? / 30? (unknown) (no (unknown) (unknown) History of (units (unk nown) date) bilateral tubal unknown) ligation (unknown) (no (unknown) (unknown) History of (units (unk nown) date) lumpectomy of right unknown) breast () (unknown) (no (unknown) (unknown) History of (units (unk nown) date) meningioma of the unknown) brain (unknown) (no (unknown) (unknown) History of total (units (unknown) date) left knee unknown) replacement (-2012) (unknown) (no (unknown) (unknown) Hx of appendectomy (units (unknown) date) unknown) (unknown) (no (unknown) (unknown) Hx of bilateral (units (unknown) date) cataract extraction unknown) (unknown) (no (unknown) (unknown) Hx of craniotomy (units (unknown) date) (2000) unknown) (unknown) (no (unknown) (unknown) Hx of dilation and (units (unknown) date) curettage unknown) (unknown) (no (unknown) (unknown) Hx of hernia repair (unit s (unknown) date) unknown) (unknown) (no (unknown) (unknown) Hx of tonsillectomy (unit s (unknown) date) unknown) (unknown) (no (unknown) (unknown) IMPRESSION: (units (un known) date) unknown) (unknown) (no (unknown) (unknown) INDICATIONS: Post (units (unknown) date) laminectomy syndrome unknown) (unknown) (no (unknown) (unknown) In summary,? she (units (unknown) date) would like treatment unknown) of left lower extremity increased tone (unknown) (no (unknown) (unknown) Increased, mild (units (unknown) date) bilateral foraminal unknown) stenosis. (unknown) (no (unknown) (unknown) Inspection / (units (u nknown) date) Palpation LE (R/L): unknown) non-tender bilaterally (unknown) (no (unknown) (unknown) Intake (units (unkno wn) date) unknown) (unknown) (no (unknown) (unknown) Intake Clinical (units (unknown) date) Staff unknown) (unknown) (no (unknown) (unknown) Intake Note: (units (u nknown) date) unknown) (unknown) (no (unknown) (unknown) Intake performed (units (unknown) date) by: Sherlyn Meade unknown) (unknown) (no (unknown) (unknown) Is patient in (units ( unknown) date) pain?: Yes (HERE FOR unknown) LUMBAR SPINE) Pain scale (1-10): 9 (unknown) (no (unknown) (unknown) L2 (iliopsoas / mid (unit s (unknown) date) anterior thigh unknown) sensation)= 5/5 : normal (unknown) (no (unknown) (unknown) L2-L3: Mild disc (units (unknown) date) height loss. unknown) Moderate disc desiccation. Mild diffuse disc (unknown) (no (unknown) (unknown) L3 (quadriceps / (units (unknown) date) distal anterior unknown) thigh sensation)= 5/5 : normal (unknown) (no (unknown) (unknown) L3-L4: Disc height (units (unknown) date) is preserved. unknown) Circumferential disc bulge combines with (unknown) (no (unknown) (unknown) L3-L4: Moderate (units (unknown) date) disc desiccation. unknown) Mild diffuse disc bulge. Moderate facet and (unknown) (no (unknown) (unknown) L4 (tibialis (units (u nknown) date) anterior / patellar unknown) reflex / medial ankle sensation)= 3+/5 : 0+ : (unknown) (no (unknown) (unknown) L4-L5: Grade 2 (units (unknown) date) anterior unknown) spondylolisthesis with associated hypertrophic facet (unknown) (no (unknown) (unknown) L4-L5: Severe disc (units (unknown) date) height loss and unknown) desiccation. Mild diffuse disc bulge. (unknown) (no (unknown) (unknown) L5 (EHL / dorsal (units (unknown) date) foot sensation)= unknown) 3+/5 : abnormal (unknown) (no (unknown) (unknown) L5-S1: Disc space (units (unknown) date) narrowing and unknown) degenerative endplate changes present without (unknown) (no (unknown) (unknown) L5-S1: Severe disc (units (unknown) date) height loss and unknown) desiccation. Mild diffuse disc bulge. Mild (unknown) (no (unknown) (unknown) LE Skin: no rashes (units (unknown) date) or lesions unknown) bilaterally (unknown) (no (unknown) (unknown) Lateral Bend(R/L): (units (unknown) date) 20 /30 unknown) (unknown) (no (unknown) (unknown) Left foot drop (units (unknown) date) unknown) (unknown) (no (unknown) (unknown) Loc: PAIN (units (unkn own) date) unknown) (unknown) (no (unknown) (unknown) Lumbar Spine Exam (units (unknown) date) unknown) (unknown) (no (unknown) (unknown) 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 (unknown) (no (unknown) (unknown) Lymph LE: no (units (u nknown) date) inguinal unknown) lymphadenopathy (unknown) (no (unknown) (unknown) MODALITY: MR (units (u nknown) date) PATIENT TYPE: Out unknown) (unknown) (no (unknown) (unknown) (units (unknown) date) ACCOUNT #: unknown) [id number] (unknown) (no (unknown) (unknown) MSK: System (units (un known) date) reviewed and no unknown) additional complaints, except as documented. (unknown) (no (unknown) (unknown) Medical History (units (unknown) date) (Reviewed 10/28/21 @ unknown) 09:15 by Devaughn Ruiz DO) (unknown) (no (unknown) (unknown) Medications (units (un known) date) unknown) (unknown) (no (unknown) (unknown) Mild scoliosis. No (units (unknown) date) vertebral body unknown) compression fractures. No suspicious bony (unknown) (no (unknown) (unknown) Moderate (units (unkno wn) date) unknown) (unknown) (no (unknown) (unknown) Neuro: System (units ( unknown) date) reviewed and no unknown) additional complaints, except as documented. (unknown) (no (unknown) (unknown) No Known Drug (units ( unknown) date) Allergies Allergy unknown) (Verified 10/28/21 08:53) (unknown) (no (unknown) (unknown) No foraminal (units (u nknown) date) stenosis. No change. unknown) (unknown) (no (unknown) (unknown) No quad tightness (units (unknown) date) unknown) (unknown) (no (unknown) (unknown) ORD. : DEVAUGHN (units (unknown) date) TOM Lin CC: unknown) CINDY OGLESBY D.O. (unknown) (no (unknown) (unknown) Objective Data (units (unknown) date) unknown) (unknown) (no (unknown) (unknown) Objective Data: (units (unknown) date) unknown) (unknown) (no (unknown) (unknown) Oblique images: No (units (unknown) date) pars defects. unknown) (unknown) (no (unknown) (unknown) Orientation: (units (u nknown) date) Oriented to person, unknown) place and time. Mood / Affect: Calm (unknown) (no (unknown) (unknown) Osteoarthritis (units (unknown) date) unknown) (unknown) (no (unknown) (unknown) Oxygen Delivery (units (unknown) date) Method room air unknown) (unknown) (no (unknown) (unknown) PFSH (units (unkno wn) date) unknown) (unknown) (no (unknown) (unknown) PROCEDURE: XR KNEE (units (unknown) date) LT 3V unknown) (unknown) (no (unknown) (unknown) Pain Scale (units (unk nown) date) unknown) (unknown) (no (unknown) (unknown) Patient: (units (unkno wn) date) Caroline Hernández L unknown) MR#: [id number] (unknown) (no (unknown) (unknown) Position Sitting (unit s (unknown) date) unknown) (unknown) (no (unknown) (unknown) Previously, she (units (unknown) date) status post left unknown) L3-4 transforaminal EDY performed on (unknown) (no (unknown) (unknown) Pulse 65 (units (un known) date) unknown) (unknown) (no (unknown) (unknown) Pulse Oximetry (%) (units (unknown) date) 99 unknown) (unknown) (no (unknown) (unknown) Pulse Source (units (u nknown) date) Monitor unknown) (unknown) (no (unknown) (unknown) ROS (units (unkno wn) date) unknown) (unknown) (no (unknown) (unknown) ROS Narrative (units ( unknown) date) unknown) (unknown) (no (unknown) (unknown) ROS Narrative: (units (unknown) date) unknown) (unknown) (no (unknown) (unknown) Reason For Visit (units (unknown) date) unknown) (unknown) (no (unknown) (unknown) Rotation (R/L): 25 (units (unknown) date) / 45 unknown) (unknown) (no (unknown) (unknown) S/P total hip (units ( unknown) date) arthroplasty unknown) (unknown) (no (unknown) (unknown) S1 (Peroneals / (units (unknown) date) Achilles reflex / unknown) lateral ankle sensation)= 5/5 : 1+ : abnormal (unknown) (no (unknown) (unknown) Sarcoidosis (2000) (units (unknown) date) unknown) (unknown) (no (unknown) (unknown) Seated SLR(R/L): + (units (unknown) date) / + unknown) (unknown) (no (unknown) (unknown) Sensation: (units (unk nown) date) Subjective normal unknown) distal sensation bilaterally (unknown) (no (unknown) (unknown) She has not had any (unit s (unknown) date) change in medication unknown) nor any new traumas.? She has had a (unknown) (no (unknown) (unknown) She reports she was (unit s (unknown) date) doing quite well unknown) postoperatively for approximately the 1st (unknown) (no (unknown) (unknown) She reports that (units (unknown) date) she is able to work unknown) this out of her period of time while (unknown) (no (unknown) (unknown) Signed By: (units (unk nown) date) unknown) (unknown) (no (unknown) (unknown) Smoking Status: (units (unknown) date) Former smoker unknown) (unknown) (no (unknown) (unknown) Social History (units (unknown) date) unknown) (unknown) (no (unknown) (unknown) Soft tissues: No (units (unknown) date) joint effusion. No unknown) suspicious soft tissue calcifications. (unknown) (no (unknown) (unknown) Soft tissues: (units ( unknown) date) Overlying bowel gas unknown) pattern is normal. Vascular calcifications (unknown) (no (unknown) (unknown) [facility] presents (units (unknown) date) today after her unknown) surgical consultation with Dr. Patterson. She (unknown) (no (unknown) (unknown) Spondylolisthesis (units (unknown) date) at L4-L5 level unknown) (unknown) (no (unknown) (unknown) Status post lumbar (units (unknown) date) laminectomy unknown) (unknown) (no (unknown) (unknown) Strength LE: 3+/5 (units (unknown) date) EHL, tibialis unknown) anterior, plantar flexion bilaterally (unknown) (no (unknown) (unknown) Supine SLR (R/L): - (unit s (unknown) date) / - unknown) (unknown) (no (unknown) (unknown) Surgical History (units (unknown) date) (Reviewed 10/28/21 @ unknown) 09:15 by Devaughn Ruiz DO) (unknown) (no (unknown) (unknown) TECHNIQUE: 3 views (units (unknown) date) of the knee were unknown) acquired. (unknown) (no (unknown) (unknown) Temp 98.3 F (units (unknown) date) unknown) (unknown) (no (unknown) (unknown) Temp Source (units (un known) date) Temporal Artery Scan unknown) (unknown) (no (unknown) (unknown) Tenderness: LS jxn (units (unknown) date) worse with extension unknown) loading (unknown) (no (unknown) (unknown) This note may have (units (unknown) date) been all or unknown) partially generated using voice recognition (unknown) (no (unknown) (unknown) Tinnitus (units (unkno wn) date) unknown) (unknown) (no (unknown) (unknown) Tobacco + Substance (unit s (unknown) date) Use unknown) (unknown) (no (unknown) (unknown) Tobacco Status (units (unknown) date) unknown) (unknown) (no (unknown) (unknown) Unknown No (units (u nknown) date) pertinent family unknown) history (unknown) (no (unknown) (unknown) Vasculature: 2+ (units (unknown) date) dorsalis pedis pulse unknown) bilaterally (unknown) (no (unknown) (unknown) Visit Reasons: (units (unknown) date) Follow Up Surgery unknown) Consult + Meds, HERE FOR LUMBAR (unknown) (no (unknown) (unknown) Vitals (units (unkno wn) date) unknown) (unknown) (no (unknown) (unknown) Aakash Signs: (units ( unknown) date) -tenderness, unknown) -simulation, -distraction, -regional disturbances, - (unknown) (no (unknown) (unknown) Weight 152 lb 8 (units (unknown) date) oz unknown) (unknown) (no (unknown) (unknown) [History Confirmed (units (unknown) date) 09/16/21] unknown) (unknown) (no (unknown) (unknown) [Rx Confirmed (units ( unknown) date) 09/16/21] unknown) (unknown) (no (unknown) (unknown) abnormal (units (unkno wn) date) unknown) (unknown) (no (unknown) (unknown) alcohol intake: (units (unknown) date) current unknown) (unknown) (no (unknown) (unknown) alignment of left (units (unknown) date) total knee unknown) arthroplasty. Hardware appears intact. No definite (unknown) (no (unknown) (unknown) anastrozole 1 mg (units (unknown) date) tablet 1 mg PO unknown) BEDTIME 05/19/21 [History Confirmed 09/16/21] (unknown) (no (unknown) (unknown) and acute care (units (unknown) date) needs of her unknown) . (unknown) (no (unknown) (unknown) anterolisthesis L4 (units (unknown) date) on L5. unknown) (unknown) (no (unknown) (unknown) any prior studies. (units (unknown) date) unknown) (unknown) (no (unknown) (unknown) associated severe (units (unknown) date) stenosis at L3-4 and unknown) L4-5.? She has done very well in the past (unknown) (no (unknown) (unknown) atherosclerosis. (units (unknown) date) There are calcified unknown) uterine fibroids in pelvis. (unknown) (no (unknown) (unknown) best as he has (units (unknown) date) released she finds unknown) her gait normalizes although she persists of (unknown) (no (unknown) (unknown) bilateral (units (unkn own) date) unknown) (unknown) (no (unknown) (unknown) bilateral facet (units (unknown) date) hypertrophy. There unknown) is decreased, moderate canal stenosis. No (unknown) (no (unknown) (unknown) bulge. Mild (units (un known) date) unknown) (unknown) (no (unknown) (unknown) bupropion HCl 75 mg (unit s (unknown) date) tablet 75 mg PO BID unknown) 05/19/21 [History Confirmed 09/16/21] (unknown) (no (unknown) (unknown) calcium carbonate (units (unknown) date) 500 mg calcium unknown) (1,250 mg) tablet 600 mg PO BID 01/12/21 (unknown) (no (unknown) (unknown) canal stenoses. (units (unknown) date) unknown) (unknown) (no (unknown) (unknown) celecoxib 200 mg (units (unknown) date) capsule (Celebrex) unknown) 200 mg PO DAILY #90 cap 08/18/21 [Rx (unknown) (no (unknown) (unknown) central (units (unkno wn) date) unknown) (unknown) (no (unknown) (unknown) central or (units (unk nown) date) foraminal stenosis. unknown) (unknown) (no (unknown) (unknown) central stenosis, (units (unknown) date) similar prior exam. unknown) Mild left and moderate right foraminal (unknown) (no (unknown) (unknown) change in (units (unkn own) date) unknown) (unknown) (no (unknown) (unknown) cholecalciferol (units (unknown) date) (vitamin D3) 50 mcg unknown) (2,000 unit) capsule 50 mcg PO DAILY (unknown) (no (unknown) (unknown) consistent with (units (unknown) date) unknown) (unknown) (no (unknown) (unknown) course with her (units (unknown) date) chronic left unknown) footdrop as previously documented. (unknown) (no (unknown) (unknown) decreased (units (unkn own) date) coordination status unknown) post left total hip arthroplasty performed (unknown) (no (unknown) (unknown) degrees (units (unkno wn) date) unknown) (unknown) (no (unknown) (unknown) escitalopram (units (u nknown) date) oxalate 5 mg tablet unknown) 5 mg PO DAILY tab 10/28/21 [History] (unknown) (no (unknown) (unknown) evidence of (units (un known) date) unknown) (unknown) (no (unknown) (unknown) facet and ligament (units (unknown) date) flavum hypertrophy. unknown) Mild epidural lipomatosis. Mild canal (unknown) (no (unknown) (unknown) facet hypertrophy. (units (unknown) date) No significant canal unknown) stenosis, nor foraminal stenosis. (unknown) (no (unknown) (unknown) facet joints and (units (unknown) date) significant unknown) ligamentum flavum hypertrophy resulting in severe (unknown) (no (unknown) (unknown) fever fatigue at (units (unknown) date) this time.? She has unknown) been fully vaccinated. (unknown) (no (unknown) (unknown) fragmentation. (units (unknown) date) Decompressive unknown) laminotomy noted as well. There remains moderate (unknown) (no (unknown) (unknown) gabapentin 100 mg (units (unknown) date) capsule 200 mg PO unknown) BEDTIME PRN #180 cap MDD 1-2 PO Tid 06/02/21 (unknown) (no (unknown) (unknown) had many questions (units (unknown) date) regarding the unknown) planned surgery including a multilevel (unknown) (no (unknown) (unknown) have occurred. If (units (unknown) date) there are any unknown) questions, please contact the Medical Records (unknown) (no (unknown) (unknown) household members: (units (unknown) date) spouse unknown) (unknown) (no (unknown) (unknown) hypertrophic (units (u nknown) date) unknown) (unknown) (no (unknown) (unknown) hypertrophy and (units (unknown) date) epidural unknown) lipomatosis. (unknown) (no (unknown) (unknown) increased from the (units (unknown) date) prior exam. unknown) (unknown) (no (unknown) (unknown) instrumented fusion (unit s (unknown) date) and the subsequent unknown) hardware. She has questions both (unknown) (no (unknown) (unknown) intravenous drug (units (unknown) date) use, sustained unknown) glucocorticoid use, osteoporosis, or a focal (unknown) (no (unknown) (unknown) is made of left hip (unit s (unknown) date) arthroplasty. Severe unknown) left hip joint degeneration. (unknown) (no (unknown) (unknown) joints with (units (un known) date) unknown) (unknown) (no (unknown) (unknown) left lower (units (unk nown) date) extremity.? She unknown) reports that sitting as well as then beginning (unknown) (no (unknown) (unknown) lesions. There is (units (unknown) date) unknown) (unknown) (no (unknown) (unknown) ligamentum flavum (units (unknown) date) hypertrophy. There unknown) is increased, moderate canal stenosis. (unknown) (no (unknown) (unknown) loosening although (units (unknown) date) serial radiographic unknown) surveillance could be performed given the (unknown) (no (unknown) (unknown) losartan 50 mg (units (unknown) date) tablet 50 mg PO unknown) BEDTIME 05/28/19 [History Confirmed 09/16/21] (unknown) (no (unknown) (unknown) lower extremity.? (units (unknown) date) She reports ongoing unknown) difficulty with spasticity involving the (unknown) (no (unknown) (unknown) may occur. (units (unk nown) date) Occasional unknown) wrong-word or 'sound-alike' substitutions may have (unknown) (no (unknown) (unknown) metoprolol (units (unk nown) date) succinate 50 mg unknown) tablet,extended release 24 hr 50 mg PO BEDTIME (unknown) (no (unknown) (unknown) mild bilateral (units (unknown) date) foraminal stenosis. unknown) (unknown) (no (unknown) (unknown) mild degenerative (units (unknown) date) disease at other unknown) levels. Severe facet arthropathy at L4-L5 and (unknown) (no (unknown) (unknown) neurological (units (u nknown) date) deficit with unknown) progressive or disabling symptoms. (unknown) (no (unknown) (unknown) occurred due to the (unit s (unknown) date) inherent limitations unknown) of voice recognition software. Please (unknown) (no (unknown) (unknown) of central and (units (unknown) date) foraminal stenosis unknown) including severe central stenosis at L3-4, (unknown) (no (unknown) (unknown) or (units (unkno wn) date) immunosuppressive unknown) therapy, previous or current cancer diagnosis, history of (unknown) (no (unknown) (unknown) otherwise feeling (units (unknown) date) well maintain the unknown) Covid19 social restrictions without cough (unknown) (no (unknown) (unknown) overreaction (units (u nknown) date) unknown) (unknown) (no (unknown) (unknown) postoperative (units ( unknown) date) unknown) (unknown) (no (unknown) (unknown) putting pressure on (unit s (unknown) date) her left lower unknown) extremity.? She does report that once this (unknown) (no (unknown) (unknown) read the note (units ( unknown) date) carefully and unknown) recognize, using context, where these substitutions (unknown) (no (unknown) (unknown) recent fall on the (units (unknown) date) right which led to a unknown) right wrist fracture which is undergoing (unknown) (no (unknown) (unknown) regarding the (units ( unknown) date) surgery and her unknown) recovery from this as well as her own care needs (unknown) (no (unknown) (unknown) severe degenerative (units (unknown) date) disease at L4-L5 and unknown) L5-S1, moderate degenerative disease at (unknown) (no (unknown) (unknown) software. 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 unknown) Moderate bilateral foraminal stenosis. (unknown) (no (unknown) (unknown) stenosis. (units (unkn own) date) unknown) (unknown) (no (unknown) (unknown) total knee (units (unk nown) date) arthroplasty 2011, unknown) post lumbar laminectomy, left hip djd (unknown) (no (unknown) (unknown) very prominent (units (unknown) date) initial relief and unknown) then return of symptoms involving the left (unknown) (no (unknown) (unknown) walking causes (units (unknown) date) extreme pain and unknown) spasticity involving the left lower extremity.? Result panel 4 (unknown) (no (unknown) (unknown) (no value) (units (unk nown) date) unknown) (unknown) (no (unknown) (unknown) Qualifiers: (units (un known) date) unknown) (unknown) (no (unknown) (unknown) Status: Acute (units ( unknown) date) unknown) (unknown) (no (unknown) (unknown) (no value) (units (unk nown) date) unknown) (unknown) (no (unknown) (unknown) (no value) (units (unk nown) date) unknown) (unknown) (no (unknown) (unknown) 10/28/21 (units (unkno wn) date) unknown) (unknown) (no (unknown) (unknown) 10/28/21 0921 (units ( unknown) date) unknown) (unknown) (no (unknown) (unknown) 08:54 (units (unkno wn) date) unknown) (unknown) (no (unknown) (unknown) [place] [id number] (unit s (unknown) date) unknown) (unknown) (no (unknown) (unknown) Laterality: left (units (unknown) date) Qualified Code(s): unknown) Z96.642 - Presence of left (unknown) (no (unknown) (unknown) Pain Visit (units (unk nown) date) unknown) (unknown) (no (unknown) (unknown) Signed (units (unkno wn) date) unknown) (unknown) (no (unknown) (unknown) [facility] (unit s (unknown) date) Management unknown) (unknown) (no (unknown) (unknown) (no value) (units (unk nown) date) unknown) (unknown) (no (unknown) (unknown) Her physical (units (u nknown) date) therapist in her unknown) attributed this to her lumbar slip at L4-5 with (unknown) (no (unknown) (unknown) L2-L3, and (units (unk nown) date) unknown) (unknown) (no (unknown) (unknown) L4-5 level is (units ( unknown) date) appropriate. unknown) (unknown) (no (unknown) (unknown) L5-S1. Note (units (un known) date) unknown) (unknown) (no (unknown) (unknown) PATIENT NAME: , (unit s (unknown) date) CAROLINE Mcgee : unknown) 1945 (unknown) (no (unknown) (unknown) absence of (units (unk nown) date) unknown) (unknown) (no (unknown) (unknown) loading.? This may (units (unknown) date) be associated with unknown) spasticity associated with her lower (unknown) (no (unknown) (unknown) orthopedic (units (unk nown) date) evaluation at unknown) [facility] tomorrow.? She reports (unknown) (no (unknown) (unknown) with transforaminal (unit s (unknown) date) EDY last on unknown) 08/26/2020 prior to her total hip arthroplasty. (unknown) (no (unknown) (unknown) (1) (units (unkno wn) date) Spondylolisthesis at unknown) L4-L5 level: (unknown) (no (unknown) (unknown) (2) S/P total hip (units (unknown) date) arthroplasty: unknown) (unknown) (no (unknown) (unknown) (3) Gait (units (unkno wn) date) instability: unknown) (unknown) (no (unknown) (unknown) (4) Status post (units (unknown) date) lumbar laminectomy: unknown) (unknown) (no (unknown) (unknown) (5) History of (units (unknown) date) meningioma of the unknown) brain: (unknown) (no (unknown) (unknown) 09/01/2021.? She (units (unknown) date) reports no unknown) difficulty with the procedure itself does report (unknown) (no (unknown) (unknown) 10/28/21 (units (unkno wn) date) unknown) (unknown) (no (unknown) (unknown) 01/12/21 [History (units (unknown) date) Confirmed 09/16/21] unknown) (unknown) (no (unknown) (unknown) 1. Multilevel (units ( unknown) date) degenerative disc unknown) and facet disease, as well as ligamentum flavum (unknown) (no (unknown) (unknown) 1. Multilevel (units ( unknown) date) degenerative disc unknown) disease and arthropathy results in varying (unknown) (no (unknown) (unknown) 1. Severe (units (unkn own) date) degenerative disc unknown) and facet disease in lumbar spine. (unknown) (no (unknown) (unknown) 11:01 (units (unkno wn) date) unknown) (unknown) (no (unknown) (unknown) 05/26/2021 with (unit s (unknown) date) Iveth Emmanuel at unknown) scheduled [facility].? (unknown) (no (unknown) (unknown) 05/28/19 [History (units (unknown) date) Confirmed 09/16/21] unknown) (unknown) (no (unknown) (unknown) 2. Grade 1-2 (units (u nknown) date) anterolisthesis at unknown) L4-L5 (unknown) (no (unknown) (unknown) 2. L4 decompressive (unit s (unknown) date) laminectomy without unknown) instrumentation, and grade 2 anterior (unknown) (no (unknown) (unknown) 2. Postsurgical (units (unknown) date) sequelae at L4. unknown) (unknown) (no (unknown) (unknown) 3. Multilevel canal (unit s (unknown) date) stenoses, worst at unknown) L3-L4 and L4-L5 where there are moderate (unknown) (no (unknown) (unknown) [id number] (units (unkno wn) date) unknown) (unknown) (no (unknown) (unknown) 4-6 weeks when she (units (unknown) date) developed increased unknown) tone involving the left lower extremity.? (unknown) (no (unknown) (unknown) 4. Mild multilevel (units (unknown) date) foraminal stenoses. unknown) (unknown) (no (unknown) (unknown) : STATION ID: (units ( unknown) date) [id number] unknown) (unknown) (no (unknown) (unknown) ? (units (unkno wn) date) unknown) (unknown) (no (unknown) (unknown) ACCESSION#: (units (un known) date) [id number] EXAM unknown) DATE: 06/07/2019 (unknown) (no (unknown) (unknown) Accompanied by: (units (unknown) date) Self / Same As unknown) Patient (unknown) (no (unknown) (unknown) Age/Sex: 76 / F (units (unknown) date) Date of Service: unknown) (unknown) (no (unknown) (unknown) All of her (units (unk nown) date) questions were unknown) answered to the best my ability she is in agreement (unknown) (no (unknown) (unknown) All other systems (units (unknown) date) reviewed and are unknown) unremarkable except as noted in HPI. (unknown) (no (unknown) (unknown) Allergies (units (unkn own) date) unknown) (unknown) (no (unknown) (unknown) Anesthesia (units (unk nown) date) unknown) (unknown) (no (unknown) (unknown) Anxiety (units (unkno wn) date) unknown) (unknown) (no (unknown) (unknown) Approved by: Karthikeyan (units (unknown) date) Mike Quigley on unknown) 08/21/2021 at 11:12 (unknown) (no (unknown) (unknown) Approved by: Marisol (units (unknown) date) Mike Ceballos on unknown) 08/21/2021 at 17:46 (unknown) (no (unknown) (unknown) Approved by: Micky (units (unknown) date) Venu Boss M.D. on unknown) 05/28/2019 at 11:41 (unknown) (no (unknown) (unknown) Approved by: Esvin (unit s (unknown) date) Mike Choi on unknown) 06/07/2019 at 12:02 (unknown) (no (unknown) (unknown) Assessment + Plan (units (unknown) date) unknown) (unknown) (no (unknown) (unknown) Attending Dr: (units ( unknown) date) Devaughn Ruiz D.O. unknown) (unknown) (no (unknown) (unknown) BMI 23.1 (units (un known) date) unknown) (unknown) (no (unknown) (unknown) BP 132/78 (units (u nknown) date) unknown) (unknown) (no (unknown) (unknown) Babinski (R/L): - / (unit s (unknown) date) - unknown) (unknown) (no (unknown) (unknown) Blood Pressure (units (unknown) date) Location Lt unknown) brachial (unknown) (no (unknown) (unknown) Bones: 5 (units (unkno wn) date) nonrib-bearing unknown) vertebrae are present. There is grade 1-2 (unknown) (no (unknown) (unknown) Bones: No fractures (unit s (unknown) date) or dislocations. No unknown) suspicious bony lesions. Expected (unknown) (no (unknown) (unknown) Breast cancer in (units (unknown) date) female unknown) (unknown) (no (unknown) (unknown) Breast cancer, (units (unknown) date) right (11/2019) unknown) (unknown) (no (unknown) (unknown) COMPARISON: None. (units (unknown) date) unknown) (unknown) (no (unknown) (unknown) CONTRAST MEDIA: (units (unknown) date) STATION ID: [id number] unknown) (unknown) (no (unknown) (unknown) Chief Complaint (units (unknown) date) unknown) (unknown) (no (unknown) (unknown) Chief Complaint: (units (unknown) date) f/u surgical unknown) consultation for lumbar spondylolisthesis (unknown) (no (unknown) (unknown) Clonus (R/L): - / - (unit s (unknown) date) unknown) (unknown) (no (unknown) (unknown) Confirmed 09/16/21] (unit s (unknown) date) unknown) (unknown) (no (unknown) (unknown) : 1945 (units (unknown) date) Acct:[id number] unknown) (unknown) (no (unknown) (unknown) DTR LE: Patellar (units (unknown) date) (0+/2+); Achilles unknown) (1+/2+) (unknown) (no (unknown) (unknown) Degenerative joint (units (unknown) date) disease (DJD) of hip unknown) (unknown) (no (unknown) (unknown) Degenerative joint (units (unknown) date) disease of both hips unknown) (unknown) (no (unknown) (unknown) Denies recent (units ( unknown) date) trauma, fever or unknown) weight loss of unknown origin, immunocompromise (unknown) (no (unknown) (unknown) Depression (units (unk nown) date) unknown) (unknown) (no (unknown) (unknown) Dept at (units (unkno wn) date) . unknown) (unknown) (no (unknown) (unknown) Details: (units (unkno wn) date) unknown) (unknown) (no (unknown) (unknown) Dictated by: Marisol (units (unknown) date) Mike Ceballos on unknown) 08/21/2021 at 17:43 (unknown) (no (unknown) (unknown) Dictated by: Micky (units (unknown) date) Venu Boss M.D. on unknown) 05/28/2019 at 11:39 (unknown) (no (unknown) (unknown) Dictated by: Esvin (unit s (unknown) date) Mike Choi on unknown) 06/07/2019 at 11:57 (unknown) (no (unknown) (unknown) Documented By: (units (unknown) date) Devaughn Ruiz D.O. 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 (unknown) (no (unknown) (unknown) Extension: 30 (units ( unknown) date) unknown) (unknown) (no (unknown) (unknown) FINDINGS: (units (unkn own) date) unknown) (unknown) (no (unknown) (unknown) FLUORO TIME: (units (u nknown) date) unknown) (unknown) (no (unknown) (unknown) Family History (units (unknown) date) (Reviewed 10/28/21 @ unknown) 09:15 by Devaughn Ruiz DO) (unknown) (no (unknown) (unknown) Flexion: 90 (units (un known) date) unknown) (unknown) (no (unknown) (unknown) Footdrop (units (unkno wn) date) unknown) (unknown) (no (unknown) (unknown) Fracture of left (units (unknown) date) tibial plateau unknown) (-2008) (unknown) (no (unknown) (unknown) Gait instability (units (unknown) date) unknown) (unknown) (no (unknown) (unknown) Gait: foot drop (units (unknown) date) Coordination: normal unknown) (unknown) (no (unknown) (unknown) General Appearance: (unit s (unknown) date) Well-nourished, well unknown) developed in no acute distress (unknown) (no (unknown) (unknown) HAD CONSULT WITH DR (unit s (unknown) date) MOURNING YESTERDAY unknown) (unknown) (no (unknown) (unknown) HPI (units (unkno wn) date) unknown) (unknown) (no (unknown) (unknown) HTN (hypertension) (units (unknown) date) unknown) (unknown) (no (unknown) (unknown) Height 5 ft 8 in (unit s (unknown) date) unknown) (unknown) (no (unknown) (unknown) Hip Adduction (units ( unknown) date) (R/L): 15? / 15? unknown) Hip Abduction (R/L): 40? / 40? (unknown) (no (unknown) (unknown) Hip Exam (units (unkno wn) date) (Bilateral) unknown) (unknown) (no (unknown) (unknown) Hip Flexion (R/L): (units (unknown) date) 120? / 120? Hip unknown) Extension (R/L): 20? / 20? (unknown) (no (unknown) (unknown) Hip IR (R/L): 5? / (units (unknown) date) 5? Hip ER (R/L): unknown) 30? / 30? (unknown) (no (unknown) (unknown) History of (units (unk nown) date) bilateral tubal unknown) ligation (unknown) (no (unknown) (unknown) History of (units (unk nown) date) lumpectomy of right unknown) breast (-2019) (unknown) (no (unknown) (unknown) History of (units (unk nown) date) meningioma of the unknown) brain (unknown) (no (unknown) (unknown) History of total (units (unknown) date) left knee unknown) replacement (-2012) (unknown) (no (unknown) (unknown) Hx of appendectomy (units (unknown) date) unknown) (unknown) (no (unknown) (unknown) Hx of bilateral (units (unknown) date) cataract extraction unknown) (unknown) (no (unknown) (unknown) Hx of craniotomy (units (unknown) date) (2000) unknown) (unknown) (no (unknown) (unknown) Hx of dilation and (units (unknown) date) curettage unknown) (unknown) (no (unknown) (unknown) Hx of hernia repair (unit s (unknown) date) unknown) (unknown) (no (unknown) (unknown) Hx of tonsillectomy (unit s (unknown) date) unknown) (unknown) (no (unknown) (unknown) IMPRESSION: (units (un known) date) unknown) (unknown) (no (unknown) (unknown) INDICATIONS: Post (units (unknown) date) laminectomy syndrome unknown) (unknown) (no (unknown) (unknown) In summary,? she (units (unknown) date) would like treatment unknown) of left lower extremity increased tone (unknown) (no (unknown) (unknown) Increased, mild (units (unknown) date) bilateral foraminal unknown) stenosis. (unknown) (no (unknown) (unknown) Inspection / (units (u nknown) date) Palpation LE (R/L): unknown) non-tender bilaterally (unknown) (no (unknown) (unknown) Intake (units (unkno wn) date) unknown) (unknown) (no (unknown) (unknown) Intake Clinical (units (unknown) date) Staff unknown) (unknown) (no (unknown) (unknown) Intake Note: (units (u nknown) date) unknown) (unknown) (no (unknown) (unknown) Intake performed (units (unknown) date) by: Sherlyn Meade unknown) (unknown) (no (unknown) (unknown) Is patient in (units ( unknown) date) pain?: Yes (HERE FOR unknown) LUMBAR SPINE) Pain scale (1-10): 9 (unknown) (no (unknown) (unknown) L2 (iliopsoas / mid (unit s (unknown) date) anterior thigh unknown) sensation)= 5/5 : normal (unknown) (no (unknown) (unknown) L2-L3: Mild disc (units (unknown) date) height loss. unknown) Moderate disc desiccation. Mild diffuse disc (unknown) (no (unknown) (unknown) L3 (quadriceps / (units (unknown) date) distal anterior unknown) thigh sensation)= 5/5 : normal (unknown) (no (unknown) (unknown) L3-L4: Disc height (units (unknown) date) is preserved. unknown) Circumferential disc bulge combines with (unknown) (no (unknown) (unknown) L3-L4: Moderate (units (unknown) date) disc desiccation. unknown) Mild diffuse disc bulge. Moderate facet and (unknown) (no (unknown) (unknown) L4 (tibialis (units (u nknown) date) anterior / patellar unknown) reflex / medial ankle sensation)= 3+/5 : 0+ : (unknown) (no (unknown) (unknown) L4-L5: Grade 2 (units (unknown) date) anterior unknown) spondylolisthesis with associated hypertrophic facet (unknown) (no (unknown) (unknown) L4-L5: Severe disc (units (unknown) date) height loss and unknown) desiccation. Mild diffuse disc bulge. (unknown) (no (unknown) (unknown) L5 (EHL / dorsal (units (unknown) date) foot sensation)= unknown) 3+/5 : abnormal (unknown) (no (unknown) (unknown) L5-S1: Disc space (units (unknown) date) narrowing and unknown) degenerative endplate changes present without (unknown) (no (unknown) (unknown) L5-S1: Severe disc (units (unknown) date) height loss and unknown) desiccation. Mild diffuse disc bulge. Mild (unknown) (no (unknown) (unknown) LE Skin: no rashes (units (unknown) date) or lesions unknown) bilaterally (unknown) (no (unknown) (unknown) Lateral Bend(R/L): (units (unknown) date) 20 /30 unknown) (unknown) (no (unknown) (unknown) Left foot drop (units (unknown) date) unknown) (unknown) (no (unknown) (unknown) Loc: PAIN (units (unkn own) date) unknown) (unknown) (no (unknown) (unknown) Lumbar Spine Exam (units (unknown) date) unknown) (unknown) (no (unknown) (unknown) 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 (unknown) (no (unknown) (unknown) Lymph LE: no (units (u nknown) date) inguinal unknown) lymphadenopathy (unknown) (no (unknown) (unknown) MODALITY: MR (units (u nknown) date) PATIENT TYPE: Out unknown) (unknown) (no (unknown) (unknown) (units (unknown) date) ACCOUNT #: unknown) [id number] (unknown) (no (unknown) (unknown) MSK: System (units (un known) date) reviewed and no unknown) additional complaints, except as documented. (unknown) (no (unknown) (unknown) Medical History (units (unknown) date) (Reviewed 10/28/21 @ unknown) 09:15 by Devaughn Ruiz DO) (unknown) (no (unknown) (unknown) Medications (units (un known) date) unknown) (unknown) (no (unknown) (unknown) Mild scoliosis. No (units (unknown) date) vertebral body unknown) compression fractures. No suspicious bony (unknown) (no (unknown) (unknown) Moderate (units (unkno wn) date) unknown) (unknown) (no (unknown) (unknown) Neuro: System (units ( unknown) date) reviewed and no unknown) additional complaints, except as documented. (unknown) (no (unknown) (unknown) No Known Drug (units ( unknown) date) Allergies Allergy unknown) (Verified 10/28/21 08:53) (unknown) (no (unknown) (unknown) No foraminal (units (u nknown) date) stenosis. No change. unknown) (unknown) (no (unknown) (unknown) No quad tightness (units (unknown) date) unknown) (unknown) (no (unknown) (unknown) ORD. : DEVAUGHN (units (unknown) date) TOM Lin CC: unknown) CINDY OGLESBY D.O. (unknown) (no (unknown) (unknown) Objective Data (units (unknown) date) unknown) (unknown) (no (unknown) (unknown) Objective Data: (units (unknown) date) unknown) (unknown) (no (unknown) (unknown) Oblique images: No (units (unknown) date) pars defects. unknown) (unknown) (no (unknown) (unknown) Orientation: (units (u nknown) date) Oriented to person, unknown) place and time. Mood / Affect: Calm (unknown) (no (unknown) (unknown) Osteoarthritis (units (unknown) date) unknown) (unknown) (no (unknown) (unknown) Oxygen Delivery (units (unknown) date) Method room air unknown) (unknown) (no (unknown) (unknown) PFSH (units (unkno wn) date) unknown) (unknown) (no (unknown) (unknown) PROCEDURE: XR KNEE (units (unknown) date) LT 3V unknown) (unknown) (no (unknown) (unknown) Pain Scale (units (unk nown) date) unknown) (unknown) (no (unknown) (unknown) Patient: (units (unkno wn) date) Caroline Hernández L unknown) MR#: [id number] (unknown) (no (unknown) (unknown) Plan (units (unkno wn) date) unknown) (unknown) (no (unknown) (unknown) Position Sitting (unit s (unknown) date) unknown) (unknown) (no (unknown) (unknown) Previously, she (units (unknown) date) status post left unknown) L3-4 transforaminal EDY performed on (unknown) (no (unknown) (unknown) Pulse 65 (units (un known) date) unknown) (unknown) (no (unknown) (unknown) Pulse Oximetry (%) (units (unknown) date) 99 unknown) (unknown) (no (unknown) (unknown) Pulse Source (units (u nknown) date) Monitor unknown) (unknown) (no (unknown) (unknown) ROS (units (unkno wn) date) unknown) (unknown) (no (unknown) (unknown) ROS Narrative (units ( unknown) date) unknown) (unknown) (no (unknown) (unknown) ROS Narrative: (units (unknown) date) unknown) (unknown) (no (unknown) (unknown) Reason For Visit (units (unknown) date) unknown) (unknown) (no (unknown) (unknown) Rotation (R/L): 25 (units (unknown) date) / 45 unknown) (unknown) (no (unknown) (unknown) S/P total hip (units ( unknown) date) arthroplasty unknown) (unknown) (no (unknown) (unknown) S1 (Peroneals / (units (unknown) date) Achilles reflex / unknown) lateral ankle sensation)= 5/5 : 1+ : abnormal (unknown) (no (unknown) (unknown) Sarcoidosis (2000) (units (unknown) date) unknown) (unknown) (no (unknown) (unknown) Seated SLR(R/L): + (units (unknown) date) / + unknown) (unknown) (no (unknown) (unknown) Sensation: (units (unk nown) date) Subjective normal unknown) distal sensation bilaterally (unknown) (no (unknown) (unknown) She has not had any (unit s (unknown) date) change in medication unknown) nor any new traumas.? She has had a (unknown) (no (unknown) (unknown) She reports she was (unit s (unknown) date) doing quite well unknown) postoperatively for approximately the 1st (unknown) (no (unknown) (unknown) She reports that (units (unknown) date) she is able to work unknown) this out of her period of time while (unknown) (no (unknown) (unknown) Signed By: (units (unk nown) date) <Electronically unknown) signed by Devaughn Ruiz D.O.> (unknown) (no (unknown) (unknown) Smoking Status: (units (unknown) date) Former smoker unknown) (unknown) (no (unknown) (unknown) Social History (units (unknown) date) unknown) (unknown) (no (unknown) (unknown) Soft tissues: No (units (unknown) date) joint effusion. No unknown) suspicious soft tissue calcifications. (unknown) (no (unknown) (unknown) Soft tissues: (units ( unknown) date) Overlying bowel gas unknown) pattern is normal. Vascular calcifications (unknown) (no (unknown) (unknown) Soundra and I did (units (unknown) date) review at length her unknown) underlying pathology she does have a (unknown) (no (unknown) (unknown) [facility] presents (units (unknown) date) today after her unknown) surgical consultation with Dr. Patterson. She (unknown) (no (unknown) (unknown) Spondylolisthesis (units (unknown) date) at L4-L5 level unknown) (unknown) (no (unknown) (unknown) Status post lumbar (units (unknown) date) laminectomy unknown) (unknown) (no (unknown) (unknown) Strength LE: 3+/5 (units (unknown) date) EHL, tibialis unknown) anterior, plantar flexion bilaterally (unknown) (no (unknown) (unknown) Supine SLR (R/L): - (unit s (unknown) date) / - unknown) (unknown) (no (unknown) (unknown) Surgical History (units (unknown) date) (Reviewed 10/28/21 @ unknown) 09:15 by Devaughn Ruiz DO) (unknown) (no (unknown) (unknown) TECHNIQUE: 3 views (units (unknown) date) of the knee were unknown) acquired. (unknown) (no (unknown) (unknown) Temp 98.3 F (units (unknown) date) unknown) (unknown) (no (unknown) (unknown) Temp Source (units (un known) date) Temporal Artery Scan unknown) (unknown) (no (unknown) (unknown) Tenderness: LS jxn (units (unknown) date) worse with extension unknown) loading (unknown) (no (unknown) (unknown) This note may have (units (unknown) date) been all or unknown) partially generated using voice recognition (unknown) (no (unknown) (unknown) Tinnitus (units (unkno wn) date) unknown) (unknown) (no (unknown) (unknown) Tobacco + Substance (unit s (unknown) date) Use unknown) (unknown) (no (unknown) (unknown) Tobacco Status (units (unknown) date) unknown) (unknown) (no (unknown) (unknown) Unknown No (units (u nknown) date) pertinent family unknown) history (unknown) (no (unknown) (unknown) Vasculature: 2+ (units (unknown) date) dorsalis pedis pulse unknown) bilaterally (unknown) (no (unknown) (unknown) Visit Reasons: (units (unknown) date) Follow Up Surgery unknown) Consult + Meds, HERE FOR LUMBAR (unknown) (no (unknown) (unknown) Vitals (units (unkno wn) date) unknown) (unknown) (no (unknown) (unknown) Aakash Signs: (units ( unknown) date) -tenderness, unknown) -simulation, -distraction, -regional disturbances, - (unknown) (no (unknown) (unknown) We do discuss (units ( unknown) date) treatment options unknown) available to her and her positive but transient (unknown) (no (unknown) (unknown) Weight 152 lb 8 (units (unknown) date) oz unknown) (unknown) (no (unknown) (unknown) [History Confirmed (units (unknown) date) 09/16/21] unknown) (unknown) (no (unknown) (unknown) [Rx Confirmed (units ( unknown) date) 09/16/21] unknown) (unknown) (no (unknown) (unknown) abnormal (units (unkno wn) date) unknown) (unknown) (no (unknown) (unknown) alcohol intake: (units (unknown) date) current unknown) (unknown) (no (unknown) (unknown) alignment of left (units (unknown) date) total knee unknown) arthroplasty. Hardware appears intact. No definite (unknown) (no (unknown) (unknown) anastrozole 1 mg (units (unknown) date) tablet 1 mg PO unknown) BEDTIME 05/19/21 [History Confirmed 09/16/21] (unknown) (no (unknown) (unknown) and acute care (units (unknown) date) needs of her unknown) . (unknown) (no (unknown) (unknown) anterolisthesis L4 (units (unknown) date) on L5. unknown) (unknown) (no (unknown) (unknown) any prior studies. (units (unknown) date) unknown) (unknown) (no (unknown) (unknown) artificial hip (units (unknown) date) joint unknown) (unknown) (no (unknown) (unknown) associated severe (units (unknown) date) stenosis at L3-4 and unknown) L4-5.? She has done very well in the past (unknown) (no (unknown) (unknown) at L3-4 secondary (units (unknown) date) to disc protrusion unknown) as well as the above-stated slip.? We did (unknown) (no (unknown) (unknown) atherosclerosis. (units (unknown) date) There are calcified unknown) uterine fibroids in pelvis. (unknown) (no (unknown) (unknown) ay occur. (units (unkn own) date) Occasional unknown) wrong-word or 'sound-alike' substitutions may have (unknown) (no (unknown) (unknown) best as he has (units (unknown) date) released she finds unknown) her gait normalizes although she persists of (unknown) (no (unknown) (unknown) bilateral (units (unkn own) date) unknown) (unknown) (no (unknown) (unknown) bilateral facet (units (unknown) date) hypertrophy. There unknown) is decreased, moderate canal stenosis. No (unknown) (no (unknown) (unknown) bulge. Mild (units (un known) date) unknown) (unknown) (no (unknown) (unknown) bupropion HCl 75 mg (unit s (unknown) date) tablet 75 mg PO BID unknown) 05/19/21 [History Confirmed 09/16/21] (unknown) (no (unknown) (unknown) calcium carbonate (units (unknown) date) 500 mg calcium unknown) (1,250 mg) tablet 600 mg PO BID 01/12/21 (unknown) (no (unknown) (unknown) canal stenoses. (units (unknown) date) unknown) (unknown) (no (unknown) (unknown) celecoxib 200 mg (units (unknown) date) capsule (Celebrex) unknown) 200 mg PO DAILY #90 cap 08/18/21 [Rx (unknown) (no (unknown) (unknown) central (units (unkno wn) date) unknown) (unknown) (no (unknown) (unknown) central or (units (unk nown) date) foraminal stenosis. unknown) (unknown) (no (unknown) (unknown) central stenosis, (units (unknown) date) similar prior exam. unknown) Mild left and moderate right foraminal (unknown) (no (unknown) (unknown) centrally (units (unkn own) date) mediated.? unknown) (unknown) (no (unknown) (unknown) change in (units (unkn own) date) unknown) (unknown) (no (unknown) (unknown) cholecalciferol (units (unknown) date) (vitamin D3) 50 mcg unknown) (2,000 unit) capsule 50 mcg PO DAILY (unknown) (no (unknown) (unknown) consistent with (units (unknown) date) unknown) (unknown) (no (unknown) (unknown) consultation with (units (unknown) date) Dr. Patterson at unknown) scheduled regional clinics for correction of (unknown) (no (unknown) (unknown) course with her (units (unknown) date) chronic left unknown) footdrop as previously documented. (unknown) (no (unknown) (unknown) decreased (units (unkn own) date) coordination status unknown) post left total hip arthroplasty performed (unknown) (no (unknown) (unknown) degrees (units (unkno wn) date) unknown) (unknown) (no (unknown) (unknown) discuss her left (units (unknown) date) lower extremity unknown) symptoms which do exhibited increased tone with (unknown) (no (unknown) (unknown) escitalopram (units (u nknown) date) oxalate 5 mg tablet unknown) 5 mg PO DAILY tab 10/28/21 [History] (unknown) (no (unknown) (unknown) evidence of (units (un known) date) unknown) (unknown) (no (unknown) (unknown) facet and ligament (units (unknown) date) flavum hypertrophy. unknown) Mild epidural lipomatosis. Mild canal (unknown) (no (unknown) (unknown) facet hypertrophy. (units (unknown) date) No significant canal unknown) stenosis, nor foraminal stenosis. (unknown) (no (unknown) (unknown) facet joints and (units (unknown) date) significant unknown) ligamentum flavum hypertrophy resulting in severe (unknown) (no (unknown) (unknown) fever fatigue at (units (unknown) date) this time.? She has unknown) been fully vaccinated. (unknown) (no (unknown) (unknown) fragmentation. (units (unknown) date) Decompressive unknown) laminotomy noted as well. There remains moderate (unknown) (no (unknown) (unknown) further assistance (units (unknown) date) but I do believe unknown) proceeding with surgical decompression (unknown) (no (unknown) (unknown) gabapentin 100 mg (units (unknown) date) capsule 200 mg PO unknown) BEDTIME PRN #180 cap MDD 1-2 PO Tid 06/02/21 (unknown) (no (unknown) (unknown) grade 1to2 slip at (units (unknown) date) L4-5 combined with unknown) severe stenosis centrally and foraminally (unknown) (no (unknown) (unknown) had many questions (units (unknown) date) regarding the unknown) planned surgery including a multilevel (unknown) (no (unknown) (unknown) have occurred. If (units (unknown) date) there are any unknown) questions, please contact the Medical Records (unknown) (no (unknown) (unknown) household members: (units (unknown) date) spouse unknown) (unknown) (no (unknown) (unknown) hypertrophic (units (u nknown) date) unknown) (unknown) (no (unknown) (unknown) hypertrophy and (units (unknown) date) epidural unknown) lipomatosis. (unknown) (no (unknown) (unknown) increased from the (units (unknown) date) prior exam. unknown) (unknown) (no (unknown) (unknown) instrumented fusion (unit s (unknown) date) and the subsequent unknown) hardware. She has questions both (unknown) (no (unknown) (unknown) intravenous drug (units (unknown) date) use, sustained unknown) glucocorticoid use, osteoporosis, or a focal (unknown) (no (unknown) (unknown) is made of left hip (unit s (unknown) date) arthroplasty. Severe unknown) left hip joint degeneration. (unknown) (no (unknown) (unknown) ith the past with (units (unknown) date) left L4-5 unknown) transforaminal EDY performed on 08/26/2020.? Her (unknown) (no (unknown) (unknown) joints with (units (un known) date) unknown) (unknown) (no (unknown) (unknown) left MOE does (units ( unknown) date) appear to be well unknown) seated and she was progressing well with (unknown) (no (unknown) (unknown) left lower (units (unk nown) date) extremity.? She unknown) reports that sitting as well as then beginning (unknown) (no (unknown) (unknown) lesions. There is (units (unknown) date) unknown) (unknown) (no (unknown) (unknown) ligamentum flavum (units (unknown) date) hypertrophy. There unknown) is increased, moderate canal stenosis. (unknown) (no (unknown) (unknown) loosening although (units (unknown) date) serial radiographic unknown) surveillance could be performed given the (unknown) (no (unknown) (unknown) losartan 50 mg (units (unknown) date) tablet 50 mg PO unknown) BEDTIME 05/28/19 [History Confirmed 09/16/21] (unknown) (no (unknown) (unknown) lower extremity.? (units (unknown) date) She reports ongoing unknown) difficulty with spasticity involving the (unknown) (no (unknown) (unknown) metoprolol (units (unk nown) date) succinate 50 mg unknown) tablet,extended release 24 hr 50 mg PO BEDTIME (unknown) (no (unknown) (unknown) mild bilateral (units (unknown) date) foraminal stenosis. unknown) (unknown) (no (unknown) (unknown) mild degenerative (units (unknown) date) disease at other unknown) levels. Severe facet arthropathy at L4-L5 and (unknown) (no (unknown) (unknown) motor neuron (units (u nknown) date) disease with unknown) compression at the L3-4 L4-5 levels or may be (unknown) (no (unknown) (unknown) neural compression (units (unknown) date) as stated above.? We unknown) will remain available should we be of (unknown) (no (unknown) (unknown) neurological (units (u nknown) date) deficit with unknown) progressive or disabling symptoms. (unknown) (no (unknown) (unknown) occurred due to the (unit s (unknown) date) inherent limitations unknown) of voice recognition software. Please (unknown) (no (unknown) (unknown) of central and (units (unknown) date) foraminal stenosis unknown) including severe central stenosis at L3-4, (unknown) (no (unknown) (unknown) or (units (unkno wn) date) immunosuppressive unknown) therapy, previous or current cancer diagnosis, history of (unknown) (no (unknown) (unknown) otherwise feeling (units (unknown) date) well maintain the unknown) Covid19 social restrictions without cough (unknown) (no (unknown) (unknown) overreaction (units (u nknown) date) unknown) (unknown) (no (unknown) (unknown) physical therapy (units (unknown) date) for the 1st 4-6 unknown) weeks.? We did review at length her surgical (unknown) (no (unknown) (unknown) postoperative (units ( unknown) date) unknown) (unknown) (no (unknown) (unknown) putting pressure on (unit s (unknown) date) her left lower unknown) extremity.? She does report that once this (unknown) (no (unknown) (unknown) read the note (units ( unknown) date) carefully and unknown) recognize, using context, where these substitutions (unknown) (no (unknown) (unknown) recent fall on the (units (unknown) date) right which led to a unknown) right wrist fracture which is undergoing (unknown) (no (unknown) (unknown) regarding the (units ( unknown) date) surgery and her unknown) recovery from this as well as her own care needs (unknown) (no (unknown) (unknown) response with the (units (unknown) date) 09/01/2021 left L3-4 unknown) transforaminal EDY as she did very well w (unknown) (no (unknown) (unknown) severe degenerative (units (unknown) date) disease at L4-L5 and unknown) L5-S1, moderate degenerative disease at (unknown) (no (unknown) (unknown) software. 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 unknown) Moderate bilateral foraminal stenosis. (unknown) (no (unknown) (unknown) stenosis. (units (unkn own) date) unknown) (unknown) (no (unknown) (unknown) the underlying (units (unknown) date) scoliosis and unknown) subsequent slip at the L4-5 level causing the (unknown) (no (unknown) (unknown) total knee (units (unk nown) date) arthroplasty 2011, unknown) post lumbar laminectomy, left hip djd (unknown) (no (unknown) (unknown) very prominent (units (unknown) date) initial relief and unknown) then return of symptoms involving the left (unknown) (no (unknown) (unknown) walking causes (units (unknown) date) extreme pain and unknown) spasticity involving the left lower extremity.? (unknown) (no (unknown) (unknown) with the (units (unkno wn) date) above-stated plan unknown) Social History date description facility (no date) Ex-smoker (finding) [facility] Vital Signs date measurement value units +0000 BMI BMI 23.1 kg/m2 [id number]+0000 BP_diastolic BP_diastolic 78 mm[H g] [id number]+0000 BP_systolic BP_systolic 132 mm[Hg] +0000 heart_rate heart_rate 65 /min +0000 height_metric height_metric 172.72 cm +0000 height_standard height_standard 68 in +0000 temperature_metric temperature_metric 36.83 C +0000 temperature_standard temperature_standard 9 8.3 F +0000 weight_metric weight_metric 31.38 kg +0000 weight_standard weight_standard 69.17 lb
--- NOTE | 2022-01-13 21:54 | CT Report ---
PROCEDURE: HEAD WO INDICATIONS: GLF, PAIN, UNSTEADY TECHNIQUE: Noncontrast 4.5 mm thick angled axial sections acquired from the foramen magnum to the vertex. For r adiation dose reduction, the following was used: automated exposure control, adjustment of mA and/or kV according to patient size. COMPARISON: None. FINDINGS: High bifrontal craniotomy changes. There is no abnormal extra axial fluid collection, evidence of acu te intracranial hemorrhage, findings of mass effect, or midline shift. The ventricular system and bas ilar cisterns are patent. Hager-white matter differentiation is maintained without CT evidence of acut e large territory infarct. Encephalomalacia and gliosis adjacent to the craniotomy consistent with pr ior hemorrhagic insult or infarct, less likely mass resection. IMPRESSION: No acute intracranial finding. Reviewed by: Gibson Del Valle MD on 01/13/2022 9:53 PM PDT Approved by: Gibson Del Valle MD on 01/13/2022 9:53 PM PDT Station ID: [id number]
--- NOTE | 2022-01-13 21:57 | CT Report ---
PROCEDURE: CERVICAL SPINE WO INDICATIONS: GLF, PAIN TECHNIQUE: Noncontrast 3 mm thick sections acquired from the skull base to the T4 level. Sagittal and coronal r eformats were then constructed. For radiation dose reduction, the following was used: automated exp osure control, adjustment of mA and/or kV according to patient size. COMPARISON: None. FINDINGS: Image quality: Excellent. Bones: No fractures or dislocations. Visualized superior ribs are intact. Soft tissues: Prevertebral soft tissues are normal in thickness. No paravertebral hematomas. No ap ical pneumothoraces. IMPRESSION: No CT evidence of acute traumatic cervical spine injury. Reviewed by: Gibson Del Valle MD on 01/13/2022 9:56 PM PDT Approved by: Gibson Del Valle MD on 01/13/2022 9:56 PM PDT Station ID: [id number]
--- NOTE | 2022-01-13 22:21 | ED Physician Documentation ---
History of Present Illness - Stated complaint Stated Complaint: GLF - Chief complaint Chief Complaint: Trauma Hd/Nk - History obtained from History obtained from: Patient, EMS - History of Present Illness Timing: Prior to arrival - Additonal information Additional information: 76-year-old female with history of dropfoot presents for head injury that occurred just prior to arrival. Patient was walking when she tripped, falling forward and striking the right side of her head against a dresser. She denies loss of consciousness, denies use of blood thinners including aspirin or Plavix. Patient states she feels "off balance and "out of it" since the occurence. EMS reports vital signs within normal limits en route. Review of Systems Ten Systems: 10 systems reviewed and negative Constitutional: denies: Fever, Chills, Myalgias Cardiac: denies: Chest pain / pressure, Palpitations Respiratory: denies: Dyspnea, Cough Neurologic: reports: Head injury, Other (dizzy, no vertigo) PD PAST MEDICAL HISTORY - Past Medical History Past Medical History: Yes Cardiovascular: Hypertension Respiratory: Other Neuro: None, Other HEENT: None - Past Surgical History General: Appendectomy, Colonoscopy Ortho: Knee replacement, Spine surgery /DIRECTOR OF MEDIA: Tubal ligation Neuro: Craniotomy HEENT: Cataracts - Present Medications Home Medications: Ambulatory Orders Medication Instructions Recorded Confirmed Calcium Citrate 1,200 mg PO DAILY 10/05/19 10/19/21 Gabapentin 200 mg PO DAILY 10/05/19 10/19/21 Losartan [Cozaar] 50 mg PO DAILY 10/05/19 10/19/21 Metoprolol Succinate 50 mg PO DAILY 10/05/19 10/19/21 Omeprazole 20 mg PO UD 10/05/19 10/19/21 Fluticasone [Flonase] 1 sprays AMRITA DAILY PRN 12/11/19 10/19/21 buPROPion HCL [Bupropion HCl] 75 mg PO BID 04/06/21 10/19/21 Escitalopram [Lexapro] 10 mg PO DAILY 10/19/21 10/19/21 Magnesium 250 mg PO DAILY 10/19/21 10/19/21 Ondansetron Odt [Zofran] 4 mg TL Q6H PRN #10 tablet 01/13/22 - Allergies Allergies/Adverse Reactions: Allergies Allergy/AdvReac Type Severity Reaction Status Date / Time No Known Drug Allergies Allergy Verified 01/13/22 20:31 - Social History Does the pt smoke?: No Smoking Status: Never smoker PD ED PE NORMAL - Vitals Vital signs reviewed: Yes - General General: Alert and oriented X 3, No acute distress, Well developed/nourished - HEENT HEENT: Atraumatic, PERRL, EOMI, Ears normal - Neck Neck: Supple, no meningeal sign, No bony TTP, No adenopathy, Thyroid normal - Cardiac Cardiac: RRR, No rub, Strong equal pulses - Respiratory Respiratory: No respiratory distress, Clear bilaterally - Abdomen Abdomen: Soft, Non tender, Non distended, No organomegaly - Back Back: No CVA TTP, No spinal TTP - Derm Derm: Normal color, Warm and dry, No rash, Other (golf-ball sized swelling R parietal skull without laceration or abrasion) - Extremities Extremities: No deformity, No tenderness to palpate, Normal ROM s pain, No edema - Neuro Neuro: Alert and oriented X 3, 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 No blood thinners. CT of head and C-spine are negative for acute findings. Patient returned back to baseline and no longer felt dizzy or "out of it" by the time of her results. Patient discharged home in stable condition. Departure - Departure Disposition: 01 Home, Self Care Clinical Impression: Concussion Qualifiers: Encounter type: initial encounter Loss of consciousness presence/duration: without LOC Qualified Code(s): S06.0X0A - Concussion without loss of consciousness, initial encounter Condition: Stable Instructions: Concussion, Concussion Dc Prescriptions: Ondansetron Odt [Zofran] 4 mg TL Q6H PRN #10 tablet PRN Reason: Nausea / Vomiting Comments: DRINK PLENTY OF FLUIDS. TYLENOL AND MOTRIN NEEDED FOR PAIN. FOLLOW UP WITH YOUR PRIMARY CARE PHYSICIAN NEEDED. IF YOU FEEL NAUSEOUS ZOFRAN WILL HELP. IT HAS BEEN SENT TO [facility] Discharge Date/Time: 01/13/22 22:38
[2022-01-13 22:24] VITALS: BP 126/79
== END 2022-01-13 22:38 | disposition home or self-care (01) ==
LOC: EDUNIT# → ED 20:23
DX: S06.0X0A Concussion without loss of consciousness, initial encounter (principal); W01.190A Fall on same level from slipping, tripping and stumbling with subsequent striking against furniture, initial encounter; Y93.01 Activity, walking, marching and hiking
CPT/HCPCS: 99282; 99284

== ENCOUNTER 2022-02-16 10:24 | Outpatient (CLI) | payer MEDICARE, OTHER ==
--- NOTE | 2022-02-17 11:09 | Mammography Report ---
UNILATERAL LEFT DIGITAL DIAGNOSTIC MAMMOGRAM 3D/2D: 02/16/2022 CLINICAL: Patient returns today to evaluate an asymmetry in the left breast. Comparison is made to exams dated: 01/28/2022 mammogram, 03/11/2021 mammogram, 08/01/2020 mammogram, localization, and 08/20/2019 mammogram - [facility]. The left breast is heterogeneously dense, which may obscure small masses (category c / 51-75% glandu lar tissue). No significant masses, calcifications, or other findings are seen in the breast. Specifically, no fi nding to correspond to the patient's screening mammography abnormality. There are a few areas of nodu lar fibroglandular tissue which may have overlapped. IMPRESSION: INCOMPLETE: NEEDS ADDITIONAL IMAGING EVALUATION There is no definite mammographic abnormality seen in the left breast to correspond with the screenin g mammography finding central to the nipple which is probably normal fibroglandular tissue, however, ultrasound is recommended. This was performed immediately following this exam. This exam was interpreted at Station ID: [id number]. NOTE: For mammograms, a report in lay terms will be sent to the patient. Approximately 15% of breast malignancies will not be visualized mammographically. In the management of a palpable breast mass, a negative mammogram must not discourage biopsy of a clinically suspicious lesion. Electronically Signed By: Angelica castanon/:02/16/2022 11:01:37 ACR BI-RADS Category 0: Incomplete 3340F PARENCHYMAL PATTERN: (D) - The breast(s) demonstrate(s) heterogeneously dense fibroglandular theresa crawford. BI-RADS CATEGORY: (0) - 0 Ultrasound [id number] Immediate follow-up LATERALITY: (B)
--- NOTE | 2022-02-17 11:10 | Ultrasound Report ---
LIMITED ULTRASOUND OF LEFT BREAST: 02/16/2022 CLINICAL: Patient returns today to evaluate an asymmetry in the left breast. Comparison is made to exams dated: 02/16/2022 mammogram, 01/28/2022 mammogram, 08/01/2020 mammogram, 09/25/2019 breast MRI, and 08/20/2019 mammogram - [facility]. Real-time ultrasound of the left breast 6 o'clock and 11-12 o'clock regions was performed. Hager sca le images of the real-time examination were reviewed. There is heterogeneously dense tissue. No significant abnormalities were seen sonographically in the left breast. Specifically, no finding to correspond to the patient's screening mammographic abnorma lity. IMPRESSION: PROBABLY BENIGN There is no sonographic correlate to the patient's screening mammography abnormality. A follow-up le ft mammogram and an ultrasound in 6 months is recommended to demonstrate stability of possible screen ing mammogram finding. Findings and recommendations were conveyed to the patient at time of exam. This exam was interpreted at Station ID: [id number]. Electronically Signed By: Angelica castanon/:02/16/2022 11:24:21 Ultrasound BI-RADS: 3 Probably benign BI-RADS CATEGORY: (3) - 3 Mammo and US [id number] 6 month follow-up LATERALITY: (L)
== END 2022-02-16 10:25 | disposition home or self-care (01) ==
LOC: DI 10:24
PROVIDERS: ATTEND Family Medicine
DX: R92.2 Inconclusive mammogram (principal)

== ENCOUNTER 2022-03-04 08:48 | Outpatient (CLI) | payer MEDICARE, OTHER ==
[~2022-03-04 08:48] MED LIST changes: -BUFFERED LIDOCAINE 10 ML SYRINGE ONE; +GADOBUTROL 7.5 MMOL/7.5 ML VIAL ONE
[2022-03-04 09:21] LABS: CREATININE 0.8 mg/dL (0.4-1.0)
--- NOTE | 2022-03-04 12:36 | MRI Report ---
PROCEDURE: Pelvis W/WO INDICATIONS: RIGHT GROIN MASS CONTRAST: Gadavist ml: 6.8 TECHNIQUE: Coronal ultra fast SE, sagittal breath-hold T2 FSE; axial T1 FSE with and without fat saturation thro ugh the pelvis. Optional long- and short-axis uterine nonbreath-hold T2 FSE through the uterus. Sag ittal or axial dynamic ultra fast GE during administration of contrast. Post-contrast axial or coron al ultra fast GE / 2-D spoiled GE with fat saturation from the iliac crests to the symphysis. Option al diffusion weighted imaging and ADC may be performed. COMPARISON: MRI pelvis 01/11/2022. FINDINGS: Image quality: Excellent. Uterus: Uterus is enlarged measuring 9 x 7.7 x 7.4 cm. Multiple uterine fibroids. Largest fibroid julian suring 6.9 cm posterior intramural. Endometrium is normal in thickness. Junctional zone is normal in thickness at 12 mm or less. Adnexa: No suspicious cystic or solid lesions. Urinary system: Bladder is not distended. Distal ureters are non distended. Urethra appears normal in morphology. Nodes and vessels: No pelvic or inguinal adenopathy by size criteria. Iliac vessels are normal in s ize. Bowel and peritoneum: No pathologic free pelvic fluid. Inferior colon and small bowel loops are nor mal in caliber. Diverticulosis. Soft tissues: Right inguinal hernia. There is trace fluid in the hernia sac. There is likely a small portion of bowel within the hernia sac which is decreased compared to December 2021, (2/). No findings of pelvic floor incompetence in the absence of provocation. Bones: Marrow demonstrates normal overall signal. Anterolisthesis of L5 on S1 measuring 0.8 cm. Left hip arthroplasty. Sacral Tarlov cysts. IMPRESSION: 1. Right inguinal hernia possibly containing a portion of bowel. There is trace fluid in the hernia s ac of uncertain clinical significance. Consider further evaluation with CT or ultrasound. 2. Enlarged fibroid uterus. No endometrial thickening. Reviewed by: Bijan Gottlieb MD on 03/04/2022 12:34 PM PDT Approved by: Bijan Gottlieb MD on 03/04/2022 12:34 PM PDT Station ID: [id number]
[2022-03-04] MEDS ORDERED: GADOBUTROL 7.5 MMOL/7.5 ML VIAL IVP ONE (16:12)
== END 2022-03-04 08:49 | disposition home or self-care (01) ==
LOC: DI 08:48
PROVIDERS: ATTEND Family Medicine
DX: K40.90 Unilateral inguinal hernia, without obstruction or gangrene, not specified as recurrent (principal); D25.1 Intramural leiomyoma of uterus
CPT/HCPCS: 36415; 72197; 82565; A9585

== ENCOUNTER 2022-06-25 20:32 | Outpatient (CLI) | payer MEDICARE, OTHER | END 2022-06-25 20:33 | disposition critical access hospital (66) | LOC: EMS 20:32 | DX: M25.562 Pain in left knee (principal); W18.39XA Other fall on same level, initial encounter; Y92.009 Unspecified place in unspecified non-institutional (private) residence as the place of occurrence of the external cause | CPT/HCPCS: A0425; A0427 ==

== ENCOUNTER 2022-06-25 20:49 | Emergency (ER) | payer MEDICARE, OTHER ==
[2022-06-25 21:01] VITALS: BP 154/107
[2022-06-25 21:09] LABS: BASOPHILS # (AUTO) 0.1 10^3/uL (0.0-0.1); BASOPHILS % (AUTO) 0.9 %; EOSINOPHILS # (AUTO) 0.2 10^3/uL (0.0-0.7); EOSINOPHILS % (AUTO) 3.9 %; HCT - HEMATOCRIT 43.6 % (37.0-47.0); HGB - HEMOGLOBIN 14.4 g/dL (12.0-16.0); LYMPHOCYTES # (AUTO) 1.9 10^3/uL (1.5-3.5); LYMPHOCYTES % (AUTO) 34.9 %; MEAN CORPUSCULAR HEMOGLOBIN 32.3 pg (27.0-31.0); MEAN CORPUSCULAR VOLUME 97.8 fL (81.0-99.0); MEAN PLATELET VOLUME 10.4 fL (7.9-10.8); MONOCYTES # (AUTO) 0.5 10^3/uL (0.0-1.0); MONOCYTES % (AUTO) 8.6 %; NEUTROPHILS # (AUTO) 2.8 10^3/uL (1.5-6.6); NEUTROPHILS % (AUTO) 51.3 %; PLT - PLATELET COUNT 168 10^3/uL (130-450); RED BLOOD COUNT 4.46 10^6/uL (4.20-5.40); RED CELL DISTRIBUTION WIDTH 12.8 % (12.0-15.0); WHITE BLOOD COUNT 5.4 x10^3/uL (4.8-10.8)
[2022-06-25 21:15] LABS: PT - PROTHROMBIN TIME 10.7 secs (9.9-12.6)
[2022-06-25 21:18] LABS: CALCIUM 8.4 mg/dL (8.5-10.3); CREATININE 0.8 mg/dL (0.4-1.0)
[2022-06-25] MEDS ORDERED: MORPHINE 2 MG/ML CARPUJECT IVP STA (21:33)
--- NOTE | 2022-06-25 21:51 | ED Physician Documentation ---
PD HPI LOWER EXT INJURY - Stated complaint Stated Complaint: GLF, LEFT KNEE PAIN - Chief complaint Chief Complaint: Ext Problem - History obtained from History obtained from: Patient, EMS - Additional information Additional information: Patient is a 77-year-old female with a history of prior left hip and knee replacement presenting for evaluation of left knee pain after fall at home That occurred just prior to arrival. Patient reports that she was bending over to turn off a water fountain that was on and lost her balance and fell down. She did not hit her head or have LOC. She recalls that her leg appeared to be in an awkward position. She was not able to stand up afterwards. EMS was called. She was given 50 mcg of fentanyl Prior to arrival.She does not take a blood thinner.Her last p.o. intake was around 6 PM. 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 Neuro: Craniotomy HEENT: Cataracts - Present Medications Home Medications: Ambulatory Orders Medication Instructions Recorded Confirmed Calcium Citrate 1,200 mg PO DAILY 10/05/19 04/19/22 Gabapentin 200 mg PO DAILY 10/05/19 04/19/22 Losartan [Cozaar] 50 mg PO DAILY 10/05/19 04/19/22 Metoprolol Succinate 50 mg PO DAILY 10/05/19 04/19/22 Escitalopram [Lexapro] 10 mg PO DAILY 10/19/21 04/19/22 Magnesium 250 mg PO DAILY 10/19/21 04/19/22 Ondansetron Odt [Zofran] 4 mg TL Q6H PRN #10 tablet 01/13/22 04/19/22 Anastrozole 1 tab PO DAILY 02/08/22 04/19/22 buPROPion HCL [Bupropion HCl] 75 mg PO ACHS 04/19/22 04/19/22 - Allergies Allergies/Adverse Reactions: Allergies Allergy/AdvReac Type Severity Reaction Status Date / Time No Known Drug Allergies Allergy Verified 06/25/22 21:01 - Social History Does the pt smoke?: No Smoking Status: Never smoker PD ED PE NORMAL - General General: Alert and oriented X 3, Well developed/nourished, Other (Mildly distressed due to pain) - HEENT HEENT: Atraumatic - Neck Neck: Supple, no meningeal sign, No bony TTP, C-Spine cleared by NEXUS criteria - Cardiac Cardiac: RRR, No murmur - Respiratory Respiratory: No respiratory distress, Clear bilaterally - Abdomen Abdomen: Soft, Non tender - Back Back: No spinal TTP - Derm Derm: Warm and dry - Extremities Extremities: Other (Left lower extremity held in flexion at the knee, patient does not want to straighten her leg, well-healed incision to left knee, tenderness to distal left femur, pedal pulses intact,No skin breaks). No: No tenderness to palpate, Normal ROM s pain - Neuro Neuro: Alert and oriented X 3, Normal speech Results - Vitals Vitals: Vital Signs - 24 hr 06/25/22 20:56 Temperature 37.0 C Heart Rate 86 Respiratory 18 Rate Blood Pressure 154/107 H O2 Saturation 95 Oxygen O2 Source Room air - EKG (time done) 2212 Rate: Rate (enter#) (78) Rhythm: NSR - Labs Labs: Laboratory Tests 06/25/22 06/25/22 06/25/22 21:03 21:03 21:03 WBC 5.4 RBC 4.46 Hgb 14.4 Hct 43.6 MCV 97.8 MCH 32.3 H MCHC 33.0 RDW 12.8 Plt Count 168 MPV 10.4 Neut # (Auto) 2.8 Lymph # (Auto) 1.9 [place] # (Auto) 0.5 Eos # (Auto) 0.2 Baso # (Auto) 0.1 Absolute Nucleated RBC 0.00 Nucleated RBC % 0.0 PT 10.7 INR 1.0 Sodium 135 Potassium 4.0 Chloride 102 Carbon Dioxide 23 Anion Gap 10.0 BUN 19 Creatinine 0.8 Estimated GFR (MDRD) 70 L Glucose 114 H Calcium 8.4 L SARS-CoV-2 (PCR) 06/25/22 21:25 WBC RBC Hgb Hct MCV MCH MCHC RDW Plt Count MPV Neut # (Auto) Lymph # (Auto) [place] # (Auto) Eos # (Auto) Baso # (Auto) Absolute Nucleated RBC Nucleated RBC % PT INR Sodium Potassium Chloride Carbon Dioxide Anion Gap BUN Creatinine Estimated GFR (MDRD) Glucose Calcium SARS-CoV-2 (PCR) NOT DETECTED PD Medical Decision Making - ED course Complexity details: reviewed results, re-evaluated patient, d/w patient ED course: Patient presenting for evaluation after a ground-level fall for left knee pain. She Did not have any indication of head injury based on history and exam. She does not take a blood thinner. Her pain is isolated to the left lower extremity.Exam is concerning for fracture given the position she is holding her leg. She appears to be neurovascularly intact. X-rays confirm a left periprosthetic femur fracture.Orthopedic surgery is not available at [facility] through the weekend and this appears to be a complicated fracture. Patient was accepted for transfer by Dr. Andre at [facility]. Patient would not allow any attempts at straightening of her leg prior to EMS transport in order to apply a knee immobilizer. 2238 - Patient has been accepted to [facility] by Dr. Eber Andre (orthopedic surgeon). Patient will be transferred to the [facility] emergency department. Departure - Departure Disposition: 02 Transfer Acute Care Hosp Clinical Impression: Marychuy-prosthetic femoral shaft fracture Condition: Stable Discharge Date/Time: 06/25/22 23:20
[2022-06-25] MEDS ORDERED: HYDROmorphone 1 MG/ML CARPUJECT IVP STA (22:47)
--- NOTE | 2022-06-25 22:50 | XRAY Report ---
PROCEDURE: Knee 3 View LT INDICATIONS: fall/pain/knee replacement TECHNIQUE: 5 views of the left knee were acquired. COMPARISON: None available. FINDINGS: Bones: A left knee prosthesis is demonstrated. No fractures or dislocations. There are indistinct p eriprosthetic lucencies along the tibial and femoral components. Soft tissues: No joint effusion. No suspicious soft tissue calcifications. IMPRESSION: 1. No fracture or dislocation. 2. Indistinct periprosthetic lucencies along the tibial and femoral components are nonspecific but th e differential includes loosening or infection. Recommend correlation clinically and comparison with prior outside studies if available. Reviewed by: Toño Westbrook MD on 06/25/2022 10:49 PM PST Approved by: Toño Westbrook MD on 06/25/2022 10:49 PM PST Station ID: [id number]
--- NOTE | 2022-06-25 22:56 | XRAY Report ---
PROCEDURE: Femur 2V LT INDICATIONS: fall/pain TECHNIQUE: 4 views of the femur were acquired. COMPARISON: Concurrent study of the left knee. FINDINGS: Bones: Left knee and left hip prostheses are noted. There is a spiral fracture of the distal left fem oral shaft with moderate medial displacement and mild valgus angulation. Soft tissues: No suspicious soft tissue calcifications or masses. IMPRESSION: 1. Moderately displaced distal left femoral shaft fracture. Reviewed by: Toño Westbrook MD on 06/25/2022 10:55 PM PST Approved by: Toño Westbrook MD on 06/25/2022 10:55 PM PST Station ID: [id number]
== END 2022-06-25 23:20 | disposition short-term general hospital (02) ==
LOC: EDUNIT# → ED 20:49
DX: S72.342A Displaced spiral fracture of shaft of left femur, initial encounter for closed fracture (principal); M97.02XA Periprosthetic fracture around internal prosthetic left hip joint, initial encounter; W18.39XA Other fall on same level, initial encounter; Y93.H9 Activity, other involving exterior property and land maintenance, building and construction; Y92.007 Garden or yard of unspecified non-institutional (private) residence as the place of occurrence of the external cause; Z20.822 Contact with and (suspected) exposure to COVID-19
CPT/HCPCS: 36415; 73552; 73562; 80048; 85025; 85610; 87635; 93005; 96374; 96375; 99284; 99285; J1170

== ENCOUNTER 2022-06-25 23:02 | Outpatient (CLI) | payer MEDICARE, OTHER | END 2022-06-25 23:03 | disposition short-term general hospital (02) | LOC: EMS 23:02 | PROVIDERS: ATTEND Emergency Medicine | DX: S72.92XA Unspecified fracture of left femur, initial encounter for closed fracture (principal); M97.9XXA Periprosthetic fracture around unspecified internal prosthetic joint, initial encounter; W18.39XA Other fall on same level, initial encounter; Z96.642 Presence of left artificial hip joint; Z96.652 Presence of left artificial knee joint | CPT/HCPCS: A0425; A0426 ==

== ENCOUNTER 2022-07-29 11:27 | Outpatient (CLI) | payer MEDICARE, OTHER ==
--- NOTE | 2022-07-29 17:26 | Ultrasound Report ---
PROCEDURE: Duplex Ext Veins Left INDICATIONS: DVT TECHNIQUE: Real-time imaging, as well as color and pulse Doppler interrogation, were performed of the lower extr emity deep veins from the inguinal ligament to the popliteal fossa. COMPARISON: None. FINDINGS: The deep veins are normally compressible, and free of intraluminal thrombus. Color and pu lse Doppler demonstrate normal phasic intraluminal flow. There is normal augmentation response to di stal compression maneuver. IMPRESSION: No left lower extremity deep venous thrombosis visualized. Reviewed by: John Hernnades MD on 07/29/2022 4:22 PM PST Approved by: John Hernandes MD on 07/29/2022 4:22 PM [id number] Station ID: [id number]
== END 2022-07-29 11:28 | disposition home or self-care (01) ==
LOC: DI 11:27
PROVIDERS: ATTEND Family Medicine
DX: I82.402 Acute embolism and thrombosis of unspecified deep veins of left lower extremity (principal)

== ENCOUNTER 2022-09-12 15:10 | Emergency (ER) | payer MEDICARE, OTHER ==
[2022-09-12] MEDS ORDERED: ACETAMINOPHEN 500 MG TABLET PO STA (15:31)
--- NOTE | 2022-09-12 15:31 | ED Physician Documentation ---
PD HPI HEAD INJURY - Stated complaint Stated Complaint: FALL - Chief complaint Chief Complaint: Trauma Hd/Nk - History obtained from History obtained from: Patient - Additional information Additional information: 77-year-old woman had a perioperative PE couple of months ago and is now on warfarin. She was getting out of her car and fell and hit the back of her head on the concrete driveway about an hour ago. No loss of consciousness. She has moderate headache. No other injuries. 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 Neuro: Craniotomy HEENT: Cataracts - Present Medications Home Medications: Ambulatory Orders Medication Instructions Recorded Confirmed Calcium Citrate 1,200 mg PO DAILY 10/05/19 04/19/22 Gabapentin 200 mg PO DAILY 10/05/19 04/19/22 Losartan [Cozaar] 50 mg PO DAILY 10/05/19 04/19/22 Metoprolol Succinate 50 mg PO DAILY 10/05/19 04/19/22 Escitalopram [Lexapro] 10 mg PO DAILY 10/19/21 04/19/22 Magnesium 250 mg PO DAILY 10/19/21 04/19/22 Ondansetron Odt [Zofran] 4 mg TL Q6H PRN #10 tablet 01/13/22 04/19/22 Anastrozole 1 tab PO DAILY 02/08/22 04/19/22 buPROPion HCL [Bupropion HCl] 75 mg PO ACHS 04/19/22 04/19/22 - Allergies Allergies/Adverse Reactions: Allergies Allergy/AdvReac Type Severity Reaction Status Date / Time oxycodone [From OxyContin] Allergy Hallucinati Verified 09/12/22 15:19 ons - Social History Does the pt smoke?: No Smoking Status: Never smoker PD ED PE NORMAL - Vitals Vital signs reviewed: Yes - General General: Alert and oriented X 3, No acute distress - HEENT HEENT: PERRL, EOMI, Other (There is a large hematoma on the high occiput) - Neck Neck: Other (Mild upper C-spine tenderness) - Neuro Neuro: Alert and oriented X 3, dry boss 2-12 intact, No motor deficit, No sensory deficit, Normal speech Eye Opening: Spontaneous Motor: Obeys Commands Verbal: Oriented GCS Score: 15 Results - Vitals Vitals: Vital Signs - 24 hr 09/12/22 15:13 Temperature 36.5 C Heart Rate 74 Respiratory 16 Rate Blood Pressure 191/96 H O2 Saturation 97 Oxygen O2 Source Room air - Labs Labs: Laboratory Tests 09/12/22 15:33 INR (Fingerstick) 1.8 H - Rads (name of study) CT of the head and cervical spine show occipital scalp hematoma and evidence of prior brain surgery. Also lung disease at the apices. Relevant Findings:: Final report received, EMP independent interpretation of test PD Medical Decision Making - ED course Complexity details: reviewed results (Whole blood pro time is 1.8, slightly subtherapeutic.) ED course: We discussed the finding of the lung disease at the apices. She has no current symptoms of shortness of breath or chest pain. No fevers. She has a history of sarcoid and presume this is worsening findings of that. She has been off prednisone for about a year. Follow-up with her district administrator for that was advised. Departure - Departure Disposition: 01 Home, Self Care Clinical Impression: Head injury Condition: Good Record reviewed to determine appropriate education?: Yes Instructions: ED Head Injury Closed Sleep Mon Comments: As discussed, based on her CT you do have some worsening lung disease. It was present on a CT in December of last year but looks worse now. Presume given the lack of symptomatology that this is a worsening finding of her sarcoid. Please follow-up with your district administrator regarding this. Your INR is 1.8 today. We actually like it a little low given the head injury, but you should have it rechecked in a few days as you may need a dose adjustment up if it is persistently low.
--- NOTE | 2022-09-12 16:08 | CT Report ---
PROCEDURE: HEAD WO INDICATIONS: head inj TECHNIQUE: Noncontrast 4.5 mm thick angled axial sections acquired from the foramen magnum to the vertex. For r adiation dose reduction, the following was used: automated exposure control, adjustment of mA and/or kV according to patient size. COMPARISON: 01/13/2022. Correlation is made with the accompanying cervical spine CT, 09/12/2022. FINDINGS: Image quality: There is streak artifact seen through the skull base. CSF spaces: Basal cisterns a re patent. No extra-axial fluid collections. Ventricles are normal in size and shape. Brain: No midline shift. No intracranial masses or hemorrhage. Hager-white matter interface is norm al. Prior right superior posterior frontal resection change seen, with stable volume loss. Skull and face: There is a scalp hematoma posteriorly, just to the left of midline. No associated ca lvarial fracture can be seen. Superior craniotomy changes are seen on the right. Calvarium and visual ized facial bones are intact, without suspicious lesions. Sinuses: Focal right sphenoid sinus disease noted. Visualized sinuses and mastoids are otherwise jamey ar. IMPRESSION: Posterior scalp hematoma, without an associated calvarial fracture. No intracranial hemorrhage is seen. No significant intracranial abnormality is seen. Prior right superior frontal resection change, with overlying craniotomy. Reviewed by: Bernard Portillo MD on 09/12/2022 3:07 PM [facility] Approved by: Bernard Portillo MD on 09/12/2022 3:07 PM [facility] Station ID: [id number]
--- NOTE | 2022-09-12 16:10 | CT Report ---
PROCEDURE: CERVICAL SPINE WO INDICATIONS: head inj TECHNIQUE: Noncontrast 3 mm thick sections acquired from the skull base to the T4 level. Sagittal and coronal r eformats were then constructed. For radiation dose reduction, the following was used: automated exp osure control, adjustment of mA and/or kV according to patient size. COMPARISON: 01/12/2022. Correlation is made with the accompanying head CT, 09/12/2022. FINDINGS: Image quality: Excellent. Bones: No fractures or dislocations. Visualized superior ribs are intact. Focal degenerative change can be seen involving the C1-C2 interface anteriorly. There is at least mod erate disc space narrowing seen at C4-C5, C5-C6, and C6-C7. Endplate irregularity and sclerosis are s een, which are worst at the C5-C6 level. Multiple levels of prominent facet arthropathy can be seen. Mild dextroconvex scoliotic curvature is seen. Soft tissues: Mild patchy opacities can be seen at the lung apices. Prevertebral soft tissues are no rmal in thickness. No paravertebral hematomas. No apical pneumothoraces. Atherosclerotic calcifica tion is seen. IMPRESSION: Negative for acute fracture. Cervical spine degenerative changes are seen, which are worst inferiorly. Mild patchy opacities can be seen at the lung apices. Reviewed by: Bernard Portillo MD on 09/12/2022 3:08 PM [facility] Approved by: Bernard Portillo MD on 09/12/2022 3:08 PM [facility] Station ID: [id number]
[2022-09-12 16:33] VITALS: BP 168/95
== END 2022-09-12 16:34 | disposition home or self-care (01) ==
LOC: ED 15:10
DX: S09.90XA Unspecified injury of head, initial encounter (principal); W19.XXXA Unspecified fall, initial encounter; I10 Essential (primary) hypertension; I26.99 Other pulmonary embolism without acute cor pulmonale; Z86.711 Personal history of pulmonary embolism; Z79.01 Long term (current) use of anticoagulants
CPT/HCPCS: 70450; 72125; 85610; 99283; 99284; A9270

== ENCOUNTER 2022-10-12 07:00 | Outpatient (CLI) | payer MEDICARE, OTHER ==
--- NOTE | 2022-10-12 14:36 | XRAY Report ---
PROCEDURE: Wrist 3 View LT INDICATIONS: PAIN IN LEFT WRIST TECHNIQUE: 3 views of the wrist were acquired. COMPARISON: None. FINDINGS: Bones: Mildly impacted and displaced comminuted fracture of the distal radius, extending into the dis lilo radioulnar joint, with adjacent periarticular bone fragments. Partially seen advanced STT and fir st CMC degenerative changes. Soft tissues: Soft tissue swelling. IMPRESSION: Distal radius fracture. Reviewed by: Irving Larson MD on 10/12/2022 2:35 PM PDT Approved by: Irving Larson MD on 10/12/2022 2:35 PM PDT Station ID: [id number]
== END 2022-10-12 23:59 | disposition home or self-care (01) ==
LOC: DI.S 07:00
PROVIDERS: ATTEND Physician Assistant
DX: S52.502A Unspecified fracture of the lower end of left radius, initial encounter for closed fracture (principal)

== ENCOUNTER 2022-10-20 11:58 | Outpatient (CLI) | payer MEDICARE, OTHER ==
[2022-10-20 12:20] LABS: CREATININE 0.7 mg/dL (0.4-1.0)
[2022-10-20] MEDS ORDERED: iohexoL-300 100 ML VIAL IVP ONE (15:51)
--- NOTE | 2022-10-20 16:16 | CT Report ---
PROCEDURE: CHEST W INDICATIONS: SINGLE SUBSEGMENTAL PULMON EMBLSM W/O ACUTE COR PU CONTRAST: 100ml Omnipaque 300 TECHNIQUE: After the administration of intravenous contrast, 1 mm axial images were acquired from the pulmonary apices through the posterior costophrenic angles. Axial 5 mm soft tissue kernel reconstructions were performed as well as 8 mm axial MIP and coronal and sagittal 5 mm reformations. For radiation dose reduction, the following was used: automated exposure control, adjustment of mA and/or kV according to patient size. COMPARISON: None. FINDINGS: Image quality: Excellent. Lungs and pleura: Architectural distortion in the upper lung zones. Mediastinum: Heart size is normal. No pericardial effusions. No mediastinal adenopathy by size criter ia. No large vessel abnormality. No filling defect within the opacified pulmonary arteries. Chest wall and lower neck: Thyroid is unremarkable. No axillary or supraclavicular adenopathy by size . Bones: No aggressive osseous abnormality. Pectus excavatum. Upper Abdomen: Unremarkable. IMPRESSION: No filling defect within the opacified pulmonary arteries. No evidence of infarct or heart strain. Architectural distortion in the upper lung zones, may indicate silicosis versus sarcoidosis. Pectus excavatum. Reviewed by: Melo Blankenship on 10/20/2022 4:15 PM PDT Approved by: Melo Blankenship on 10/20/2022 4:15 PM PDT Station ID: [id number]
== END 2022-10-20 11:59 | disposition home or self-care (01) ==
LOC: LAB 11:58
PROVIDERS: ATTEND Family Medicine
DX: I26.93 Single subsegmental thrombotic pulmonary embolism without acute cor pulmonale (principal); Q67.6 Pectus excavatum
CPT/HCPCS: 36415; 82565

== ENCOUNTER 2022-10-20 23:37 | Outpatient (CLI) | payer MEDICARE, OTHER | END 2022-10-20 23:59 | disposition EMS.NT | LOC: EMS 23:37 | DX: Z03.89 Encounter for observation for other suspected diseases and conditions ruled out (principal) ==

== ENCOUNTER 2022-10-23 16:54 | Outpatient (CLI) | payer MEDICARE, OTHER | END 2022-10-23 16:55 | disposition EMS.NT | LOC: EMS 16:54 | DX: Z03.89 Encounter for observation for other suspected diseases and conditions ruled out (principal) ==

== ENCOUNTER 2022-10-27 10:10 | Outpatient (CLI) | payer MEDICARE, OTHER | END 2022-10-27 23:59 | disposition EMS.NT | LOC: EMS 10:10 | DX: I10 Essential (primary) hypertension (principal) ==

== ENCOUNTER 2022-11-01 10:47 | Outpatient (CLI) | payer MEDICARE, OTHER ==
--- NOTE | 2022-11-02 09:30 | Mammography Report ---
UNILATERAL LEFT DIGITAL DIAGNOSTIC MAMMOGRAM 3D/2D: 11/01/2022 CLINICAL: Patient returns for a 6 month follow up of the left breast. Comparison is made to exams dated: 02/16/2022 mammogram, 01/28/2022 mammogram, 03/11/2021 mammogram, 05/2021 mammogram, and 02/16/2022 ultrasound - [facility]. The left breast is heterogeneously dense, which may obscure small masses (category c / 51-75% glandul ar tissue). No significant masses, calcifications, or other findings are seen in the breast. IMPRESSION: NEGATIVE There is no abnormality seen in the left breast to correspond with the mammography finding central to the nipple which is consistent with normal fibroglandular tissue. There is no mammographic evidence of malignancy. Return to annual mammogram screening schedule is rec ommended. This exam was interpreted at Station ID: [id number]. NOTE: For mammograms, a report in lay terms will be sent to the patient. Approximately 15% of breast malignancies will not be visualized mammographically. In the management of a palpable breast mass, a negative mammogram must not discourage biopsy of a clinically suspicious lesion. Electronically Signed By: John turner/forest:11/01/2022 13:53:41 letter sent: No_Letter ACR BI-RADS Category 1: Negative 3341F PARENCHYMAL PATTERN: (D) - The breast(s) demonstrate(s) heterogeneously dense fibroglandular theresa crawford. BI-RADS CATEGORY: (1) - 1 Mammogram [id number] return to screening LATERALITY: (B)
== END 2022-11-01 10:48 | disposition home or self-care (01) ==
LOC: DI 10:47
PROVIDERS: ATTEND Family Medicine
DX: R92.8 Other abnormal and inconclusive findings on diagnostic imaging of breast (principal)

== ENCOUNTER 2022-11-16 08:00 | Outpatient (CLI) | payer MEDICARE, OTHER ==
--- NOTE | 2022-11-17 08:58 | XRAY Report ---
PROCEDURE: Wrist 3 View LT INDICATIONS: LEFT WRIST FRACTURE TECHNIQUE: 3 views of the wrist were acquired. COMPARISON: X-ray left wrist, 10/12/2022. FINDINGS: Bones: There is impaction distal radial metaphysis. Alignment is stable. No dislocations. No suspic ious bony lesions. Fbhkmdea-[id number]-tmabci degenerative joint disease at the triscaphe joint and the first carpometacarpal joint. Soft tissues: No suspicious soft tissue calcifications or masses. IMPRESSION: Healing distal radial metaphyseal fracture. Reviewed by: Marisol Ceballos MD on 11/17/2022 8:57 AM PDT Approved by: Marisol Ceballos MD on 11/17/2022 8:57 AM PDT Station ID: [id number]
== END 2022-11-16 23:59 | disposition home or self-care (01) ==
LOC: DI.WOS 08:00
PROVIDERS: ATTEND Orthopaedic Surgery
DX: S52.532D Colles' fracture of left radius, subsequent encounter for closed fracture with routine healing (principal)

== ENCOUNTER 2022-12-02 13:58 | Outpatient (CLI) | payer MEDICARE, OTHER | END 2022-12-02 23:59 | disposition EMS.NT | LOC: EMS 13:58 | DX: Z03.89 Encounter for observation for other suspected diseases and conditions ruled out (principal) ==

== ENCOUNTER 2022-12-14 14:54 | Outpatient (CLI) | payer MEDICARE, OTHER | END 2022-12-14 14:55 | disposition EMS.NT | LOC: EMS 14:54 | DX: Z03.89 Encounter for observation for other suspected diseases and conditions ruled out (principal) ==

== ENCOUNTER 2022-12-28 12:50 | Outpatient (CLI) | payer MEDICARE, OTHER | END 2022-12-28 23:59 | disposition left against medical advice (07) | LOC: EMS 12:50 | DX: R51.9 Headache, unspecified (principal); W01.0XXA Fall on same level from slipping, tripping and stumbling without subsequent striking against object, initial encounter; Y92.009 Unspecified place in unspecified non-institutional (private) residence as the place of occurrence of the external cause ==

== ENCOUNTER 2023-03-23 17:21 | Outpatient (CLI) | payer MEDICARE, OTHER | END 2023-03-23 17:22 | disposition EMS.NT | LOC: EMS 17:21 | DX: R53.1 Weakness (principal) ==

== ENCOUNTER 2023-04-12 14:22 | Outpatient (CLI) | payer MEDICARE, OTHER | END 2023-04-12 14:23 | disposition EMS.NT | LOC: EMS 14:22 | DX: R51.9 Headache, unspecified (principal); M25.511 Pain in right shoulder; W01.0XXA Fall on same level from slipping, tripping and stumbling without subsequent striking against object, initial encounter; Y92.008 Other place in unspecified non-institutional (private) residence as the place of occurrence of the external cause ==

== ENCOUNTER 2023-05-24 08:24 | Outpatient (CLI) | payer MEDICARE, OTHER ==
--- NOTE | 2023-05-25 09:38 | Mammography Report ---
BILATERAL DIGITAL SCREENING MAMMOGRAM 3D/2D: 05/24/2023 CLINICAL: Routine screening. Personal history of right breast cancer. Comparison is made to exams dated: 11/01/2022 mammogram, 02/16/2022 mammogram, 01/28/2022 mammogram, mammogram, 08/01/2020 mammogram, and 08/20/2019 mammogram - [facility]. Both breasts are heterogeneously dense, which may obscure small masses (category c / 51-75% glandular tissue). There are benign calcifications in both breasts. There also are benign post operative findings in th e right breast. No significant masses, calcifications, or other findings are seen in either breast. There has been no significant interval change. IMPRESSION: BENIGN There is no mammographic evidence of malignancy. A 1 year screening mammogram is recommended. This exam was interpreted at Station ID: [id number]. NOTE: For mammograms, a report in lay terms will be sent to the patient. Approximately 15% of breast malignancies will not be visualized mammographically. In the management of a palpable breast mass, a negative mammogram must not discourage biopsy of a clinically suspicious lesion. Electronically Signed By: Angelica castanon/forest:05/24/2023 15:34:40 letter sent: No_Letter ACR BI-RADS Category 2: Benign Finding(s) 3342F PARENCHYMAL PATTERN: (D) - The breast(s) demonstrate(s) heterogeneously dense fibroglandular theresa crawford. BI-RADS CATEGORY: (2) - 2 Mammogram [id number] 1 year screening LATERALITY: (B)
== END 2023-05-24 08:25 | disposition home or self-care (01) ==
LOC: DI 08:24
PROVIDERS: ATTEND Internal Medicine Hematology & Oncology
DX: Z12.31 Encounter for screening mammogram for malignant neoplasm of breast (principal); Z85.3 Personal history of malignant neoplasm of breast; R92.333 Mammographic heterogeneous density, bilateral breasts